=== PATIENT | male | born 1950 | race Caucasian/White ===

== ENCOUNTER 2023-07-25 19:47 | Inpatient (IN) | payer OTHER, SELFPAY ==
[2023-07-25] VITALS (9 sets, daily range): BP systolic 109–164; BP diastolic 54–73; BMI 23.1
--- NOTE | 2023-07-25 13:49 | ED.GENMED ---
History of Present Illness
<Mahad Uriostegui PA-C - Last Filed: 07/25/23 15:33>
General
Chief Complaint: Bowel Problem
Source: patient and spouse
Time Seen by Provider: 07/25/23 13:42
Travel History
Have you had any contact with someone who has COVID-19?: No
Do you have any symptoms of coronavirus? Fever > 100 degrees, chills, cough, shortness of breath, sore throat, loss of taste or smell, muscle aches, or headache?: No
History of Present Illness
History of Present Illness:
73-year-old male with past medical history of hypertension, diabetes, 2 previous bowel obstruction status post bowel resection in 2017 presenting to the emergency department for evaluation after he states he started with abdominal discomfort
yesterday, decreased p.o. intake and continued bloating sensation and pain today. Patient states the pain does feel similar to previous small bowel obstruction in the past but notes that he is still able to pass gas and has been eating albeit much
less than usual. Patient denies any fevers, chills, rigors, vomiting, urinary symptoms, back or flank pain, chest pain or shortness of breath or any other concerns. Did not attempt anything for symptoms prior to arrival. Social history
noncontributory.
Past History
<Mahad Uriostegui PA-C - Last Filed: 07/25/23 15:33>
Past History
ED Past Medical History: Asthma, HTN, Hypercholesterolemia, NIDDM and Other (ventral hernia, BPH)
ED Past Surgical History: Bowel resection
Social History
Tobacco: Non-smoker
Alcohol: Occasional
Drug: None
Personal:
Living: with family
Employment: Employed
Family History
Family History: Other (reviewed and noncontributory)
Review of Systems
<Mahad Uriostegui PA-C - Last Filed: 07/25/23 15:33>
Review of Systems
All Other Systems: ROS reviewed and negative except as documented in HPI and ROS
Phy Exam
<Mahad Uriostegui PA-C - Last Filed: 07/25/23 15:33>
Physical Exam
Physical Exam:
GENERAL: Alert , appears uncomfortable
EYE: clear conjunctiva b/l
HEAD: NCAT
ENT: o/p clr, mmm.
CARDIAC: Tachycardic rate and rhythm
LUNGS: Clear breath sounds bilaterally, no acute respiratory distress, no wheezes/rales/rhonchi
ABDOMEN: Firm, distended, tenderness with guarding in the left lower quadrant, normoactive bowel sounds throughout, no rebound, no cvat
NEUROLOGICAL: Alert and oriented
SKIN: Warm and dry, skin intact.
MUSCULOSKELETAL: No edema, well perfused.
PSYCH: Normal and appropriate interaction.
Scores
<Mahad Uriostegui PA-C - Last Filed: 07/25/23 15:33>
Heart Failure Risk
Heart Failure Risk Score: Not Applicable
Heart Score for Chest Pain Patients
STEMI patient?: Not applicable
Withdrawal Assessment of Alcohol
Withdrawal Assessment Completed?: Not applicable
Course
<Mahad Uriostegui PA-C - Last Filed: 07/25/23 15:33>
Orders/Labs/Results
Orders:
Orders
07/25/23 14:35
Complete Blood Count/With Diff Urgent
Comprehensive Metabolic Panel Urgent
Lipase Urgent
Manual Differential Urgent
07/25/23 15:03
CT Abd/pel (oral only)-[facility] Only Urgent
Comment:
Reason For Exam: lower abd pain, TATIANNA
Iohexol [Omnipaque] See Protocol PO NOW STA
07/25/23 16:54
Urinalysis Reflex To Culture Urgent
Date Specimen was Collected: 07/25/23
Time Specimen was Collected: 15:35
07/25/23 18:23
Lactated Ringers [Lr] 1,000 ml IV BOLUS
07/25/23 18:35
Lactic Acid Q4H
Comment: CANCEL 2nd LACTIC ACID IF 1st LACTIC ACID IS LESS THAN 2
07/25/23 18:51
NG Tube [GI tube insertion- Treatment] ONCE
HYDROmorphone [Dilaudid] 0.5 mg IV NOW STA
Ondansetron Injectable [Zofran] 4 mg IV NOW STA
07/25/23 19:22
Admit/Transfer Patient As Directed
Co-Sign Provider:
Level of Care: Inpatient admission
Assign to:: Medical/Surgical
Physician / Group: marck
Diagnosis: SBO
Reason for Hospitalization: SBO
Expected length of stay greater than two midnights?: Yes
ELOS- Estimated Length of Stay in days: 2
I certify the patient meets the requirements for IP care: Yes
Code Status As Directed
Resuscitation Status: Full Code
07/25/23 19:23
CR Chest Portable - 1 View Urgent
Comment:
Reason For Exam: NG placement
Reason Study Needs to be Portable: Unable to Transport
07/25/23 22:30
Lactic Acid Q4H
Comment: CANCEL 2nd LACTIC ACID IF 1st LACTIC ACID IS LESS THAN 2
Abnormal Lab Results
07/25/23 07/25/23 07/25/23
14:35 16:54 18:44
RBC 3.87 L 10^6/uL
(4.70-6.10)
Hgb 10.9 L g/dL
(13.0-18.0)
Hct 33.2 L %
(39.0-52.0)
MCHC 32.8 L g/dL
(33.0-37.0)
Abs Neuts (Manual) 7.0 H 10^3/uL
(1.4-6.5)
Band Neutrophils 24 H %
(0-3)
Lymphocytes (Manual) 7 L %
(20-51)
Monocytes (Manual) 10 H %
(2-9)
Sodium 131 L mmol/L
(135-145)
BUN 50 H mg/dl
(9-20)
Creatinine 2.0 H mg/dL
(0.7-1.3)
Glucose 160 H mg/dl
(70-99)
Urine Bilirubin 1+ A
(Negative)
Urine Glucose 2+ A
(Negative)
POC Glucose 129 H mg/dl
(70-99)
07/25/23 14:35
07/25/23 14:35
Vital Signs
Initial and Last Documented VS:
Initial Vital Signs
Temp Pulse Resp BP Pulse Ox
97.6 F 120 16 127/70 96
07/25/23 13:15 07/25/23 13:15 07/25/23 13:15 07/25/23 13:15 07/25/23 13:15
Last Documented Vital Signs
Temp Pulse Resp BP Pulse Ox
97.6 F 114 16 130/56 96
07/25/23 13:15 07/25/23 17:30 07/25/23 17:30 07/25/23 17:00 07/25/23 17:30
<Dov Perez PA-C - Last Filed: 07/25/23 19:27>
Orders/Labs/Results
Orders:
Orders
07/25/23 14:35
Complete Blood Count/With Diff Urgent
Comprehensive Metabolic Panel Urgent
Lipase Urgent
Manual Differential Urgent
07/25/23 15:03
CT Abd/pel (oral only)-[facility] Only Urgent
Comment:
Reason For Exam: lower abd pain, TATIANNA
Iohexol [Omnipaque] See Protocol PO NOW STA
07/25/23 16:54
Urinalysis Reflex To Culture Urgent
Date Specimen was Collected: 07/25/23
Time Specimen was Collected: 15:35
07/25/23 18:23
Lactated Ringers [Lr] 1,000 ml IV BOLUS
07/25/23 18:35
Lactic Acid Q4H
Comment: CANCEL 2nd LACTIC ACID IF 1st LACTIC ACID IS LESS THAN 2
07/25/23 18:51
NG Tube [GI tube insertion- Treatment] ONCE
HYDROmorphone [Dilaudid] 0.5 mg IV NOW STA
Ondansetron Injectable [Zofran] 4 mg IV NOW STA
07/25/23 19:22
Admit/Transfer Patient As Directed
Co-Sign Provider:
Level of Care: Inpatient admission
Assign to:: Medical/Surgical
Physician / Group: marck
Diagnosis: SBO
Reason for Hospitalization: SBO
Expected length of stay greater than two midnights?: Yes
ELOS- Estimated Length of Stay in days: 2
I certify the patient meets the requirements for IP care: Yes
Code Status As Directed
Resuscitation Status: Full Code
07/25/23 19:23
CR Chest Portable - 1 View Urgent
Comment:
Reason For Exam: NG placement
Reason Study Needs to be Portable: Unable to Transport
07/25/23 22:30
Lactic Acid Q4H
Comment: CANCEL 2nd LACTIC ACID IF 1st LACTIC ACID IS LESS THAN 2
Abnormal Lab Results
07/25/23 07/25/23 07/25/23
14:35 16:54 18:44
RBC 3.87 L 10^6/uL
(4.70-6.10)
Hgb 10.9 L g/dL
(13.0-18.0)
Hct 33.2 L %
(39.0-52.0)
MCHC 32.8 L g/dL
(33.0-37.0)
Abs Neuts (Manual) 7.0 H 10^3/uL
(1.4-6.5)
Band Neutrophils 24 H %
(0-3)
Lymphocytes (Manual) 7 L %
(20-51)
Monocytes (Manual) 10 H %
(2-9)
Sodium 131 L mmol/L
(135-145)
BUN 50 H mg/dl
(9-20)
Creatinine 2.0 H mg/dL
(0.7-1.3)
Glucose 160 H mg/dl
(70-99)
Urine Bilirubin 1+ A
(Negative)
Urine Glucose 2+ A
(Negative)
POC Glucose 129 H mg/dl
(70-99)
07/25/23 14:35
07/25/23 14:35
Vital Signs
Initial and Last Documented VS:
Initial Vital Signs
Temp Pulse Resp BP Pulse Ox
97.6 F 120 16 127/70 96
07/25/23 13:15 07/25/23 13:15 07/25/23 13:15 07/25/23 13:15 07/25/23 13:15
Last Documented Vital Signs
Temp Pulse Resp BP Pulse Ox
97.6 F 114 16 130/56 96
07/25/23 13:15 07/25/23 17:30 07/25/23 17:30 07/25/23 17:00 07/25/23 17:30
<Mahad Uriostegui PA-C - Last Filed: 07/25/23 15:33>
MDM/Problems Addressed
Differential Diagnosis Includes:
Diverticulitis, diverticulosis, bowel obstruction, appendicitis, colitis, pancreatitis
MDM/Problems Addressed:
73-year-old male presenting the emergency department for evaluation of generalized abdominal pain however on exam pain seems to be most in the left lower quadrant. He has normal bowel sounds throughout all quadrants making the diagnosis of bowel
obstruction a little less likely. Will obtain CT scan to further evaluate. Labs ordered. Patient declining anything for pain or nausea at this time. Reassessment following
<Mahad Uriostegui PA-C - Last Filed: 07/25/23 15:33>
*Pulse Oximetry
Patient hypoxic: no
Data Reviewed
Review of Other/Old Records Reveals: Labs and Records
Source: patient and spouse
<Dov Perez PA-C - Last Filed: 07/25/23 19:27>
*Critical Care Note
Total Time (30-74mins, 75-104mins- exclusive of procedures): Not Applicable
<Mahad Uriostegui PA-C - Last Filed: 07/25/23 15:33>
Comment
Comment:
Patient's labs show an acute kidney injury. His CT scan was changed from a IV contrast study to oral contrast only. Patient has no leukocytosis but there is a bandemia. CT pending. Possible admission
<Dov Perez PA-C - Last Filed: 07/25/23 19:27>
Update Note
Update Note:
07/25/2023 1823 PM: Assumed care of this patient from Chris Uriostegui PA-C at shift change 1800. Awaiting results of CT scan. High level of concern for bowel obstruction. On review of labs patient with acute kidney injury and mild uremia, will order
for 1 L of lactated Ringer's, lactic acid level to be sent
07/25/2023 1857 PM: CT confirms SBO. No pneumatosis. Reviewed with gen surg, agrees with NGT and hospitalist admission.
ED Attending Note
<Mahad Uriostegui PA-C - Last Filed: 07/25/23 15:33>
-
Portions of this chart may have been created with voice recognition software.� Occasional wrong word or��sound alike� substitutions may have occurred due to the inherent limitations of voice recognition software.
Discharge Plan
Departure
Patient Disposition: Admit
Date of Disposition: 07/25/23
Time of Disposition: 19:05
Presentation/result/management discussed w/ accepting MD/DO: Hospitalist
Discharge Problem:
Small bowel obstruction
Prescriptions:
No Action
multivitamin with folic acid [Tab-A-Eusebio] 1 TABLET tablet
1 tab PO DAILY
metformin 500 mg tablet
1,000 mg PO BID@0800,1700
lisinopril 20 mg tablet
20 mg PO DAILY
simvastatin 10 mg tablet
10 mg PO QPM
glipizide 5 mg tablet extended release 24hr
5 mg PO DAILY
hydrochlorothiazide 12.5 mg capsule
12.5 mg PO DAILY
dapagliflozin propanediol [Farxiga] 5 mg tablet
5 mg PO DAILY
Referrals:
Alton Lindquist MD [Family Provider] -
Interventions
Interventions:
*Risk Screen - Suicide Last Done: 07/25/23 14:31
*General Assessment Last Done: 07/25/23 14:31
*Neglect/Abuse Screening Last Done: 07/25/23 14:31
ED- Fall Risk Assessment Last Done: 07/25/23 14:31
*ED COVID-19 Vaccine History Last Done: 07/25/23 13:15
[facility]-Rzagrf-Slvzfyuvwb Assessment Last Done: 07/25/23 14:31
Discharge Date and Time
Print Language: JORDANIAN
[2023-07-25 14:55] LABS: Hematocrit 33.2 % (39.0-52.0); Hemoglobin 10.9 g/dL (13.0-18.0); Mean Corp Hgb Conc. 32.8 g/dL (33.0-37.0); Mean Corpuscular Hgb 28.2 pg (27.0-31.0); Mean Corpuscular Volume 85.8 fL (80.0-94.0); Mean Platelet Volume 9.4 fL (7.4-10.4); Nucleated Red Blood Cells % 0 % (-); Platelet Count 363 10^3/uL (130-400); Red Blood Cell Count 3.87 10^6/uL (4.70-6.10); Red Cell Dist. Width 13.6 % (11.5-14.5); White Blood Cell Count 9.4 10^3/uL (4.8-10.8)
[2023-07-25 14:58] LABS: ALT (SGPT) 20 U/L (0-50); AST (SGOT) 20 U/L (17-59); Albumin 3.8 g/dl (3.5-5.0); Alkaline Phosphatase 63 U/L (38-126); Blood Urea Nitrogen 50 mg/dl (9-20); Calcium 8.9 mg/dl (8.4-10.2); Carbon Dioxide 24 mmol/L (22-30); Chloride 98 mmol/L (98-107); Glucose 160 mg/dl (70-99); Lipase 49 U/L (23-300); Sodium 131 mmol/L (135-145); Total Bilirubin 0.8 mg/dl (0.2-1.3); Total Protein 6.4 g/dl (6.3-8.2); eGFR 34.16
[2023-07-25 15:32] LABS: Band Neutrophils 24 % (0-3); Eosinophils 3 % (0-6); Lymphocytes 7 % (20-51); Monocytes 10 % (2-9); Myelocytes 5 % (-); Normal RBC Morphology Yes; Platelets Checked Yes; Segmented Neutrophils 51 % (42-75); Total Cells Counted 100
[2023-07-25] MEDS: OMNIPAQUE 50 ML PO (15:33)
[2023-07-25 17:07] LABS: Urine Albumin Negative (Neg - Trace); Urine Bilirubin 1+ (Negative); Urine Character Clear (Clear); Urine Color Yellow; Urine Glucose 2+ (Negative); Urine Ketone Negative (Negative); Urine Leukocyte Negative (Negative); Urine Nitrite Negative (Negative); Urine Occult Blood Negative (Negative); Urine Urobilinogen Negative (Neg - 1+)
[2023-07-25] MEDS: LR 1000 IV (18:40)
[2023-07-25 18:45] LABS: Glucose - Point of Care 129 mg/dl (70-99)
[2023-07-25] MEDS: DILAUDID 0.5 MG IV ×2 (18:59→23:51)
[2023-07-25] MEDS: ZOFRAN 4 MG IV (18:59)
[2023-07-25 19:04] LABS: Lactic Acid 1.5 mmol/L (0.7-2.0)
--- NOTE | 2023-07-25 19:25 | HPS.HSE ---
Family Physician
-
Family Physician: Alton Lindquist
Chief Complaint
-
abdominal pain
History of Present Illness
73-year-old male past medical history of hypertension, asthma, diabetes, CKD, macular degeneration, prior bowel obstruction status post bowel resection in 2017, presenting with abdominal pain since yesterday with bloating, decreased p.o. intake. He
did have vomiting today. Pain feels similar to when he had small bowel obstruction in the past but he is still able to pass gas although much less than usual. He did have some diarrhea yesterday. He denies any fevers or chills urinary symptoms,
back or flank pain, chest pain or shortness of breath.
Denies smoking or alcohol use.
Medical History
Past Medical History
Past Medical History: Reports Other (hypertension, asthma, diabetes, CKD, macular degeneration, prior bowel obstruction status post bowel resection in 2017,)
Past Surgical History: Reports Other (bowel obstruction )
Social History
Tobacco: Non-smoker
Alcohol: None
Drug: None
Family History
Family History: Not pertinent
Allergies / Home Medications
Allergies reflects when Allergies were last updated in [facility].
Home Medications with original date entered in [facility]
Allergy/Medication List:
Allergies
Allergy/AdvReac Type Severity Reaction Status Date / Time
No Known Allergies Allergy Verified 07/25/23 13:49
Home Medications
multivitamin with folic acid 400 mcg tablet (Tab-A-Eusebio) 1 tab PO DAILY 03/21/20
dapagliflozin propanediol 5 mg tablet (Farxiga) 5 mg PO DAILY 07/25/23
glipizide 5 mg tablet, extended release 24 hr 5 mg PO DAILY 07/25/23
hydrochlorothiazide 12.5 mg capsule 12.5 mg PO DAILY 07/25/23
lisinopril 20 mg tablet 20 mg PO DAILY 07/25/23
metformin 500 mg tablet 1,000 mg PO BID@0800,1700 05/01/24
simvastatin 10 mg tablet 10 mg PO QPM 07/25/23
Review of Systems
-
History Source: Patient
A 12 point ROS was completed and negative except as noted: Yes
Constitutional: Reports No Symptoms
EENT: Reports No Symptoms
Respiratory: Reports No Symptoms
Cardiac: Reports No Symptoms
Abdomen/GI: Reports See HPI
: Reports No Symptoms
Musculoskeletal: Reports No Symptoms
Skin: Reports No Symptoms
Neurological: Reports No Symptoms
Endocrine: Reports No Symptoms
Hematologic/Lymphatic: Reports No Symptoms
Psych: Reports No Symptoms
Physical Exam
Vital Signs
Vital Signs
Temp Pulse Resp BP Pulse Ox
97.6 F 114 16 130/56 96
07/25/23 13:15 07/25/23 17:30 07/25/23 17:30 07/25/23 17:00 07/25/23 17:30
Physical Exam
General: Well Developed, Well Nourished and No Apparent Distress
HEENT: NormoCephalic, Moist mucous membranes and Atraumatic
Respiratory: Clear
Cardiac: S1/S2 and Regular Rhythm; No Murmur or Rub
GI: Soft, Non Distended, Normal Bowel Sounds, Tender (diffusely ) and Distended; No Organomegaly
Rectal: Deferred by Provider
Musculoskeletal: No Clubbing, No Cyanosis and No Edema
Skin: No Rash
Neuro: Nonfocal/grossly intact
Laboratory Results
-
07/25/23 14:35
07/25/23 14:35
Laboratory Results
Lactic Acid 1.5 mmol/L (0.7-2.0) 07/25/23 18:35
Total Bilirubin 0.8 mg/dl (0.2-1.3) 07/25/23 14:35
AST 20 U/L (17-59) 07/25/23 14:35
ALT 20 U/L (0-50) 07/25/23 14:35
Alkaline Phosphatase 63 U/L (38-126) 07/25/23 14:35
Lipase 49 U/L (23-300) 07/25/23 14:35
Data Reviewed
-
Lab Data: Labs Reviewed by me
Old Records: Reviewed
Impression/Plan
-
IMPRESSION:
PLAN:
# Small bowel obstruction
# History of small bowel obstruction status post bowel resection 2016
-CT abdomen pelvis shows small bowel obstruction with transition involving enterocolic anastomosis in the right lower quadrant, mild small bowel thickening
-N.p.o. including medications
-NG tube placed, check chest x-ray for placement
-IV fluids
-Zofran, Dilaudid
-General surgery consulted
# Acute kidney injury prerenal on CKD stage II
-IV fluids
Essential hypertension
-Hold hydrochlorothiazide, lisinopril
-As needed hydralazine if needed
Asthma
Type 2 diabetes
-Hold glipizide, metformin, dapagliflozin
-Insulin sliding scale
Macular degeneration
Full code
DVT prophylaxis�heparin
N.p.o.
--- NOTE | 2023-07-25 20:50 | PTCARENOTE ---
Pt arrived to room 416-02. Pt did stand/ pivot from stretcher to bed. Pt AAOx3, VSS. Pt with NG tube placed down in ED. Pt c/o 5/10 pain to left side of face post NG tube placement per pt. Pt in no signs of acute distress, respirations regular. Pt
oriented to room, call dela cruz placed within reach.
[2023-07-25] MEDS: NSS 1000 IV (21:39)
[2023-07-25] MEDS: HEPARIN 5000 UNITS SC (21:39)
[2023-07-26 01:52] LABS: Glucose - Point of Care 159 mg/dl (70-99)
[2023-07-26 06:24] LABS: Glucose - Point of Care 135 mg/dl (70-99)
[2023-07-26 07:03] LABS: % Basophils 0.6 % (0-2); % Eosinophils 5.5 % (0-6); % Immature Granulocytes 0.4 % (0-0.5); % Lymphocytes 7.6 % (20.5-51.1); % Monocytes 15.1 % (1.7-9.3); % Neutrophils 70.8 % (42.2-75.2); Absolute Basophils 0.1 10^3/uL (0-0.2); Absolute Eosinophils 0.5 10^3/uL (0-0.7); Absolute Lymphocytes 0.6 10^3/uL (1.2-3.4); Absolute Monocytes 1.2 10^3/uL (0.1-0.6); Absolute Neutrophils 5.8 10^3/uL (1.4-6.5); Hematocrit 32.1 % (39.0-52.0); Hemoglobin 10.7 g/dL (13.0-18.0); Mean Corp Hgb Conc. 33.3 g/dL (33.0-37.0); Mean Platelet Volume 9.2 fL (7.4-10.4); Nucleated Red Blood Cells % 0 % (-); Platelet Count 393 10^3/uL (130-400); Red Blood Cell Count 3.82 10^6/uL (4.70-6.10); Red Cell Dist. Width 13.6 % (11.5-14.5); White Blood Cell Count 8.1 10^3/uL (4.8-10.8)
[2023-07-26] MEDS: NSS 1000 IV ×2 (07:06→17:35)
[2023-07-26 07:17] LABS: ALT (SGPT) 16 U/L (0-50); AST (SGOT) 19 U/L (17-59); Albumin 3.5 g/dl (3.5-5.0); Alkaline Phosphatase 65 U/L (38-126); Blood Urea Nitrogen 44 mg/dl (9-20); Calcium 8.7 mg/dl (8.4-10.2); Carbon Dioxide 24 mmol/L (22-30); Chloride 101 mmol/L (98-107); Estimated Creatinine Clearance 39 ml/min; Glucose 125 mg/dl (70-99); Potassium 4.8 mmol/L (3.5-5.1); Sodium 134 mmol/L (135-145); Total Bilirubin 0.6 mg/dl (0.2-1.3); eGFR 41.52
[2023-07-26 07:30] VITALS: BP 139/66
[2023-07-26] MEDS: NOVOLOG FLEXPEN-LOW RESISTANCE SC ×4 (09:12→19:27)
--- NOTE | 2023-07-26 09:43 | CON.GS ---
Consultation
-
Reason for Consultation: Small bowel obstruction
Medical History
-
Chief Complaint: Abdominal pain, bloating
History of Present Illness:
The patient is a 73-year-old male who has a past surgical history notable for laparoscopic assisted ileocecectomy in [address] Vernon for what was noted as a severely thickened and strictured terminal ileum. Reviewing pathology report
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 No dysplasia or malignancy.
Patient states that he has done well since his operative procedure without any GI issues/symptoms. He was in his usual baseline state of health until 2 days ago when he took note of progressive abdominal distention and discomfort followed by pain.
Pain is central and generalized not localizing to a specific area. He had nausea and occasional small amounts of vomiting. He has not passed much flatus and not had a bowel movement since his symptoms started.
Reports relief of abdominal pain since emergency department evaluation. His nausea has subsided as well. NG tube is uncomfortable and he has a bit of sinus pressure and headache on the left side where he was placed. No flatus or bowel movement.
Patient also states that he feels as though his abdominal distention has improved.
Past Medical History
Past Medical History: Other (Hypertension, asthma, diabetes, CKD, macular degeneration)
Past Surgical History: Bowel Resection (Laparoscopic assisted ileocecectomy 2017)
Social History
Tobacco: Non-Smoker
Alcohol: None
Family History
Family History: Reviewed & Not Pertinent
Allergies / Home Medications
Allergy/AdvReac Type Severity Reaction Status Date / Time
No Known Allergies Allergy Verified 07/25/23 13:49
�Medication �Instructions �Recorded �Confirmed �Type
multivitamin with folic acid 400 1 tab PO DAILY Supplement 03/21/20 07/25/23 History
mcg tablet (Tab-A-Euseboi)
dapagliflozin propanediol 5 mg 5 mg PO DAILY Diabetes 07/25/23 07/25/23 History
tablet (Farxiga)
glipizide 5 mg tablet, extended 5 mg PO DAILY Diabetes 07/25/23 07/25/23 History
release 24 hr
hydrochlorothiazide 12.5 mg capsule 12.5 mg PO DAILY Fluid 07/25/23 07/25/23 History
Retention/Swelling
lisinopril 20 mg tablet 20 mg PO DAILY Blood Pressure 07/25/23 07/25/23 History
metformin 500 mg tablet 1,000 mg PO BID@0800,1700 Diabetes 07/25/23 07/25/23 History
simvastatin 10 mg tablet 10 mg PO QPM High Cholesterol 07/25/23 07/25/23 History
Review of Systems
-
History Source: Patient
All other systems: Negative unless noted
A 10 point review of systems was completed, and was negative except as per HPI.
Physical Exam
Vital Signs
Temp Pulse Resp BP Pulse Ox
97.4 F 90 16 139/66 95
07/26/23 07:30 07/26/23 07:30 07/26/23 07:30 07/26/23 07:30 07/26/23 07:30
07/25/23 07/26/23 07/27/23
06:59 06:59 06:59
Actual Weight 73.113 kg
Body Mass Index (BMI) 23.1
Lab Results
07/26/23 06:35
07/26/23 06:35
WBC 8.1 10^3/uL (4.8-10.8) 07/26/23 06:35
Hgb 10.7 g/dL (13.0-18.0) L 07/26/23 06:35
Hct 32.1 % (39.0-52.0) L 07/26/23 06:35
Plt Count 393 10^3/uL (130-400) 07/26/23 06:35
Abs Immat Gran (auto) 0.0 10^3/uL (0-0.05) 07/26/23 06:35
Neutrophils % 70.8 % (42.2-75.2) 07/26/23 06:35
Physical Exam
General: Well Developed, Well Nourished, No Apparent Distress and Other (Uncomfortable appearing mainly due to NG tube)
HEENT: Normocephalic, Anicteric and Moist Mucous Membranes
Respiratory: Non Labored Respirations
Cardiac: Regular Rhythm
GI: Soft, Tender (Mild tenderness on palpation. No rebound, rigidity or guarding. No percussion tenderness.) and Distended (With tympany on percussion)
Neuro: AO x 3
Psych: Calm
Data Reviewed
-
Radiology: Image Personally Visualized and interpreted
CT Scan: Image Personally Visualized and interpreted
Labs: Labs Reviewed by me
Assessment / Plan
-
Assessment: 73-year-old male presenting with probable small bowel obstruction.
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 He states that he has not had
any need for GI follow-up since bowel resection.
CT imaging personally reviewed. Rather diffuse small bowel dilation and some small bowel wall thickening/edema in the more proximal jejunum. Oral contrast opacifies the stomach and proximal small bowel. No significant ascites. No free air. No
pneumatosis, no portal venous gas. No evidence of closed-loop obstruction. Small bowel tapers distally either close to or about the region of the ileal colonic anastomosis.
Chest x-ray appeared to show NG tube within the distal esophagus and not definitively traversing the diaphragm. Discussed with patient and nursing staff, has not appeared as though anybody has since manipulated the NG tube to advance it further
Afebrile, persistent sinus tachycardia
On examination however the patient is softly distended and has very minimal tenderness
No leukocytosis on admission but he did have a bandemia initially.
Elevated BUN/creatinine indicative of dehydration and acute kidney injury; slightly improved.
There is no lactic acidosis and carbon dioxide remains normal this a.m.
Plan: I advanced the NG tube from 50 to 65 cm at the naris and resecured at as there was scant to no output in the NG tube canister at bedside.
Follow-up abdominal x-ray to evaluate bowel gas pattern, previous ingested oral contrast as well as NG tube positioning
No indications for urgent/emergent surgical intervention with clinical stability, benign abdominal examination and CT imaging without evidence of closed-loop obstruction or bowel compromise/immediate threat.
Maintain NG tube decompression and bowel rest
Continue aggressive IV fluid hydration
Will continue to follow
[2023-07-26] MEDS: DILAUDID 0.5 MG IV ×2 (09:56→18:23)
--- NOTE | 2023-07-26 10:16 | W.PN.HOSP.TC ---
Today's Communication/Plan
-
To continue n.p.o. with NG tube to low suction awaiting tube placement after adjustment.
Continue IV fluids
Continue to monitor BMP and acute kidney injury
Monitor BP and blood sugars while n.p.o. to follow sliding scale coverage and as needed hydralazine
Assessment / Plan
Assessment / Plan
73-year-old male past medical history of hypertension, asthma, diabetes, CKD, macular degeneration, prior bowel obstruction status post bowel resection in 2017, presenting with abdominal pain since yesterday with bloating, decreased p.o. intake. He
did have vomiting today. Pain feels similar to when he had small bowel obstruction in the past but he is still able to pass gas although much less than usual. He did have some diarrhea yesterday. He denies any fevers or chills urinary symptoms,
back or flank pain, chest pain or shortness of breath.
Denies smoking or alcohol use.
After NG tube insertion minimal output overnight and NG tube noted to be at distal esophagus on imaging and was further advanced by Dr. Padgett and general surgery this morning
# Small bowel obstruction
# History of small bowel obstruction status post bowel resection 2016
-CT abdomen pelvis shows small bowel obstruction with transition involving enterocolic anastomosis in the right lower quadrant, mild small bowel thickening
-N.p.o. including medications
-NG tube placed, chest x-ray showed NG tube at distal esophagus no transition below the diaphragm and was advanced by general surgery repeat imaging pending
-IV fluids to continue
-Zofran, Dilaudid
-General surgery consulted
# Acute kidney injury prerenal on CKD stage II
-IV fluids to continue
Essential hypertension
-Hold hydrochlorothiazide, lisinopril
-As needed hydralazine if needed
Asthma
Type 2 diabetes
-Hold glipizide, metformin, dapagliflozin
-Insulin sliding scale
Macular degeneration
Full code
DVT prophylaxis�heparin
N.p.o.
Anticipated Discharge: 24 - 48 hours
Subjective/Interval History
-
Date of Service: July 26, 2023
Describing less abdominal distention and tenderness surgery had to advance the NG tube. He is describing some discomfort in the left nares into his sinuses given him a headache.
Objective Data
-
Labs:
Laboratory Results
07/26/23
06:35
WBC 8.1
Hgb 10.7 L
Hct 32.1 L
Plt Count 393
Sodium 134 L
Potassium 4.8
Chloride 101
Carbon Dioxide 24
BUN 44 H
Creatinine 1.7 H
Glucose 125 H
Calcium 8.7
Total Bilirubin 0.6
AST 19
ALT 16
Alkaline Phosphatase 65
Vital Signs:
Vital Signs
Temp Pulse Resp BP Pulse Ox
97.4 F 90 16 139/66 95
07/26/23 07:30 07/26/23 07:30 07/26/23 07:30 07/26/23 07:30 07/26/23 07:30
I&O
07/25/23 07/26/23 07/27/23
06:59 06:59 06:59
Intake Total 0 / 0 800 / 800
Output Total 1100 / 1100
Balance -1100 / -1100 800 / 800
Review of Systems
-
History Source: Patient
EENT: Reports Sore Throat and Runny Nose (Left nares from NGT)
Abdomen/GI: Reports Abdominal Pain and Constipated
Physical Exam
-
General: Well Developed
HEENT: Normocephalic
Respiratory: Clear to Auscultation
Cardiac: Regular Rhythm
GI: Soft, Tender and Distended
Neuro: Awake and Alert
Data Reviewed
-
Total Time Spent with Patient (in minutes): 45
CT Scan: Report Reviewed by me (Diffuse distention of small bowel. Ingested contrast material does not reach the cecum. Small bowel distended up to 4.4 cm. Mild wall thickening is noted. No evidence of pneumatosis. Transition appears to be in the
right lower quadrant. Surgical clips are demonstrated suggesting an enterocolic anas)
Labs: Labs Reviewed by me (No over the BUN trending down to 44 creatinine trending down to 1.7 sodium 134 glycohemoglobin 7.0)
--- NOTE | 2023-07-26 11:19 | CM ---
I met with Pedro Luis and his girlfriend who was at his bedside. Pedro Luis is feeling better today, but still with NGT. We spoke about his activities and Brayan advised that he works for a [employer] center to stay active. He anticipates returning home at
discharge.
CM will continue to follow.
[2023-07-26 11:39] LABS: Glucose - Point of Care 149 mg/dl (70-99)
[2023-07-26] MEDS: HEPARIN 5000 UNITS SC ×2 (11:54→20:28)
--- NOTE | 2023-07-26 14:00 | PTCARENOTE ---
1400 Pt c/o throat discomfort, currently has NGtube in place. DR. Manrique notified and ordered chloreseptic spray PRN. Explain to pt and medication given with some relief, continue to monitor pt closely.
[2023-07-26] MEDS: CHLORASEPTIC/SORE THROAT SPRAY 2 SPRAY PO (14:42)
[2023-07-26 15:00] VITALS: BP 137/67
--- NOTE | 2023-07-26 16:01 | PTCARENOTE ---
[address] Padgett regarding NGtube in good position after abdomen x-ray completed. Noted orders to flush Ngtube as per MD, continue to monitor pt closely.
[2023-07-26 18:12] LABS: Glucose - Point of Care 90 mg/dl (70-99)
[2023-07-26 23:44] VITALS: BP 156/84
[2023-07-27 00:07] LABS: Glucose - Point of Care 98 mg/dl (70-99)
[2023-07-27] MEDS: NSS 1000 IV ×2 (00:45→07:53)
[2023-07-27] MEDS: DILAUDID 0.5 MG IV (00:45)
[2023-07-27 06:05] LABS: Glucose - Point of Care 101 mg/dl (70-99)
[2023-07-27 07:23] LABS: Hematocrit 33.7 % (39.0-52.0); Hemoglobin 10.9 g/dL (13.0-18.0); Mean Corp Hgb Conc. 32.3 g/dL (33.0-37.0); Mean Corpuscular Hgb 27.8 pg (27.0-31.0); Platelet Count 424 10^3/uL (130-400); Red Blood Cell Count 3.92 10^6/uL (4.70-6.10); Red Cell Dist. Width 13.4 % (11.5-14.5)
[2023-07-27 07:49] LABS: Blood Urea Nitrogen 27 mg/dl (9-20); Calcium 8.6 mg/dl (8.4-10.2); Carbon Dioxide 21 mmol/L (22-30); Chloride 104 mmol/L (98-107); Estimated Creatinine Clearance 51 ml/min; Glucose 103 mg/dl (70-99); Potassium 4.5 mmol/L (3.5-5.1); Sodium 136 mmol/L (135-145); eGFR 57.29
[2023-07-27] MEDS: NOVOLOG FLEXPEN-LOW RESISTANCE SC ×3 (07:50→16:48)
[2023-07-27 07:52] VITALS: BP 158/72
[2023-07-27] MEDS: HEPARIN 5000 UNITS SC ×2 (07:53→20:25)
--- NOTE | 2023-07-27 08:47 | PN.CDI ---
CDI
- -
CDI:
Physician Documentation Request
Admit Date: 07/25/23 19:47
Dear Doctor Hilaria,
Clinical Indicators:
Patient admitted with small bowel obstruction/TATIANNA; presenting with vomiting and abdominal pain.
IVF: LF 1L bolus + NSS maintenance fluids
Sodium levels:
07/25/23 07/26/23
14:35 06:35
Sodium 131 L 134 L
Based on the above, could you clarify in the progress notes, the appropriate diagnosis, if significant, that supports the above abnormalities and additional evaluation, monitoring and/or treatment rendered:
Hyponatremia
Abnormal lab values, clinically insignificant
Other, please specify
Use of terms such as suspected, likely, concern for, or probable (associated with a specific diagnosis that is being evaluated, monitored, or treated as if it exists) are acceptable and can be coded in the inpatient setting, when documented at the
time of discharge.
Thank you,
LEIDA Spence RN
CDI Specialist
available via tiger text
Please use your independent medical judgment in providing your response.
--- NOTE | 2023-07-27 10:38 | W.PN.GS2 ---
Addendum entered and electronically signed by Pato Schilling MD 07/27/23 14:54:
I saw and examined the patient independently.
The Decorator Inspector's note was reviewed and I agree with the note, assessment and plan except where noted below.
Comment: This is a 73-year-old male with history of laparoscopic cholecystectomy 2017 presenting with probable small bowel obstruction however now with return of bowel function. NG tube removed at bedside.
Start clears, patient is still distended so we will go slow.
No acute surgical intervention warranted at this time.
Surgery will continue to follow
Original Note:
Today's Communication / Plan
-
d/c NGT and start clears
Assessment / Plan
-
73-year-old male with h/o of laparoscopic ileocecectomy in 2017 presenting with probable small bowel obstruction. Now with passage of flatus/stools. Symptomatic improvement.
AFVSS
--NGT removed at bedside
--Advance diet to clears
--No surgical intervention planned at this time, will follow with diet advancement
--Medical management as per primary team
Subjective Data
-
Date of Service: July 27, 2023
Patient seen and examined at bedside with Dr. Schilling. Denies n/v. Passing flatus with BM this am. Denies abdominal pain. Notes he is feeling anxious this am.
Objective Data
-
Intake and Output
07/26/23 07/27/23 07/28/23
06:59 06:59 06:59
Intake Total 0 / 0 3370 / 3370
Output Total 1100 / 1100 700 / 700
Balance -1100 / -1100 2670 / 2670
Intake:
Oral fluids 220 / 220
IV fluids (Total) 3120 / 3120
Amount instilled into GI Tube ( 0 / 0 30 / 30
Total)
[place] Sump 30 / 30
Output:
Gastrointestinal tube output ( 600 / 600 250 / 250
Total)
[place] Sump 250 / 250
Urine, Voided 500 / 500 450 / 450
Vital Signs
Temp Pulse Resp BP Pulse Ox
97.8 F 72 18 158/72 95
07/27/23 07:30 07/27/23 07:52 07/27/23 07:52 07/27/23 07:52 07/27/23 07:52
Lab Results
07/27/23 06:36
07/27/23 06:36
Calcium 8.6 mg/dl (8.4-10.2) 07/27/23 06:36
Total Bilirubin 0.6 mg/dl (0.2-1.3) 07/26/23 06:35
AST 19 U/L (17-59) 07/26/23 06:35
ALT 16 U/L (0-50) 07/26/23 06:35
Alkaline Phosphatase 65 U/L (38-126) 07/26/23 06:35
Total Protein 6.0 g/dl (6.3-8.2) L 07/26/23 06:35
Albumin 3.5 g/dl (3.5-5.0) 07/26/23 06:35
Physical Exam
-
NAD
ABD soft, mild distention, NT
--- NOTE | 2023-07-27 10:40 | W.PN.HOSP.TC ---
Today's Communication/Plan
-
NG tube out started on clear liquids
Continue to monitor renal status and electrolytes they are improving
Okay to discontinue IV fluids
Take for oral
Resume some of his oral medications but withhold hydrochlorothiazide and metformin hold glipizide
Assessment / Plan
Assessment / Plan
73-year-old male past medical history of hypertension, asthma, diabetes, CKD, macular degeneration, prior bowel obstruction status post bowel resection in 2017, presenting with abdominal pain since yesterday with bloating, decreased p.o. intake. He
did have vomiting today. Pain feels similar to when he had small bowel obstruction in the past but he is still able to pass gas although much less than usual. He did have some diarrhea yesterday. He denies any fevers or chills urinary symptoms,
back or flank pain, chest pain or shortness of breath.
Denies smoking or alcohol use.
After NG tube insertion minimal output overnight and NG tube noted to be at distal esophagus on imaging and was further advanced by Dr. Padgett and general surgery this morning
# Small bowel obstruction
# History of small bowel obstruction status post bowel resection 2016
-CT abdomen pelvis shows small bowel obstruction with transition involving enterocolic anastomosis in the right lower quadrant, mild small bowel thickening
-N.p.o. >> clear liquid
-NG tube placed, chest x-ray showed NG tube at distal esophagus no transition below the diaphragm and was advanced by general surgery repeat imaging pending
-IV fluids can be discontinued
-Zofran, Dilaudid
-General surgery consulted
# Acute kidney injury prerenal on CKD stage II in resolution
-IV fluids to discontinued
-Nephrotoxins withheld and hydrochlorothiazide will continue to be held however will restart JULIO CESAR inhibitor
Essential hypertension
-Hold hydrochlorothiazide, lisinopril
-As needed hydralazine if needed
Asthma
Type 2 diabetes
-Hold glipizide, metformin, dapagliflozin
-Insulin sliding scale
Macular degeneration
Full code
DVT prophylaxis�heparin
N.p.o.
Anticipated Discharge: Within 24 hours
Subjective/Interval History
-
Date of Service: July 27, 2023
This Mr. Minor is doing better he had his NG tube pulled this morning he had a bowel movement earlier this morning he is not complaining of any nausea or vomiting overnight has not been started on a diet as yet he had a transient episode of chest
discomfort this morning and a he attributes to anxiety is unclear whether the NG tube is still indwelling at that time I suspect it was EKG was fine
Objective Data
-
Labs:
Laboratory Results
07/27/23
06:36
WBC 8.0
Hgb 10.9 L
Hct 33.7 L
Plt Count 424 H
Sodium 136
Potassium 4.5
Chloride 104
Carbon Dioxide 21 L
BUN 27 H
Creatinine 1.3
Glucose 103 H
Calcium 8.6
Vital Signs:
Vital Signs
Temp Pulse Resp BP Pulse Ox
97.8 F 72 18 158/72 95
07/27/23 07:30 07/27/23 07:52 07/27/23 07:52 07/27/23 07:52 07/27/23 07:52
I&O
07/26/23 07/27/23 07/28/23
06:59 06:59 06:59
Intake Total 0 / 0 3370 / 3370
Output Total 1100 / 1100 700 / 700
Balance -1100 / -1100 2670 / 2670
Review of Systems
-
History Source: Patient
Constitutional: Denies Fever
EENT: Reports Sore Throat
Respiratory: Reports No Symptoms
Cardiac: Reports Chest Pain (Atypical)
Abdomen/GI: Reports Constipated
Physical Exam
-
General: Well Developed
HEENT: Normocephalic
Respiratory: Clear to Auscultation
Cardiac: Regular Rhythm
GI: Soft, Nontender, Nondistended and Normal Bowel Sounds (Still hypoactive)
Skin: Warm
Neuro: Awake
Psych: Calm
Data Reviewed
-
Total Time Spent with Patient (in minutes): 56
Labs: Labs Reviewed by me (Of white count is stable and normal hemoglobin 10.9 chemistry stable BUN slightly elevated 27 but improved from 44/and creatinine down to 1.3)
--- NOTE | 2023-07-27 11:35 | CM ---
Patient seen bedside with girlfriend, reports no needs to CM at this time. Per chart, NG tube removed. CM will continue to follow for discharge planning needs.
Plan; home no needs likely.
[2023-07-27 11:50] LABS: Glucose - Point of Care 115 mg/dl (70-99)
[2023-07-27] MEDS: ZESTRIL 20 MG PO (11:52)
[2023-07-27 15:03] VITALS: BP 136/69
[2023-07-27 16:49] LABS: Glucose - Point of Care 99 mg/dl (70-99)
[2023-07-27] MEDS: LIPITOR 10 MG PO (16:55)
[2023-07-27 23:05] VITALS: BP 143/62
[2023-07-28 01:07] LABS: Glucose - Point of Care 101 mg/dl (70-99)
[2023-07-28 07:00] VITALS: BP 143/70
[2023-07-28 07:23] LABS: Glucose - Point of Care 131 mg/dl (70-99)
[2023-07-28] MEDS: NOVOLOG FLEXPEN-LOW RESISTANCE SC ×2 (07:27→16:54)
[2023-07-28] MEDS: FARXIGA 5 MG PO (07:37)
[2023-07-28] MEDS: DILAUDID 0.5 MG IV (07:37)
[2023-07-28] MEDS: HEPARIN 5000 UNITS SC ×2 (07:37→20:17)
[2023-07-28 07:38] LABS: Blood Urea Nitrogen 16 mg/dl (9-20); Calcium 8.5 mg/dl (8.4-10.2); Carbon Dioxide 26 mmol/L (22-30); Chloride 103 mmol/L (98-107); Estimated Creatinine Clearance 55 ml/min; Glucose 117 mg/dl (70-99); Potassium 4.4 mmol/L (3.5-5.1); Sodium 133 mmol/L (135-145); eGFR > 60.00
[2023-07-28] MEDS: ZESTRIL 20 MG PO (07:41)
--- NOTE | 2023-07-28 10:13 | W.PN.HOSP.TC ---
Addendum entered and electronically signed by Abraham Manrique MD 07/28/23 13:50:
Hyponatremia
Original Note:
Today's Communication/Plan
-
Today full liquids
Check BMP again in a.m.
Presumed can transition to low residue diet tonight or tomorrow morning for discharge plan can resume hydrochlorothiazide at that time.
Assessment / Plan
Assessment / Plan
73-year-old male past medical history of hypertension, asthma, diabetes, CKD, macular degeneration, prior bowel obstruction status post bowel resection in 2017, presenting with abdominal pain since yesterday with bloating, decreased p.o. intake. He
did have vomiting today. Pain feels similar to when he had small bowel obstruction in the past but he is still able to pass gas although much less than usual. He did have some diarrhea yesterday. He denies any fevers or chills urinary symptoms,
back or flank pain, chest pain or shortness of breath.
Denies smoking or alcohol use.
After NG tube insertion minimal output overnight and NG tube noted to be at distal esophagus on imaging and was further advanced by Dr. Padgett and general surgery this morning
# Small bowel obstruction/resolving
# History of small bowel obstruction status post bowel resection 2016
-CT abdomen pelvis shows small bowel obstruction with transition involving enterocolic anastomosis in the right lower quadrant, mild small bowel thickening
-N.p.o. >> clear liquid>> full liquids today
-IV fluids can be discontinued
-Zofran, Dilaudid
-General surgery consulted
# Acute kidney injury prerenal on CKD stage II in resolution
-IV fluids to discontinued
-Nephrotoxins withheld and hydrochlorothiazide will continue to be held however will restart JULIO CESAR inhibitor
Essential hypertension
-Hold hydrochlorothiazide, lisinopril
-As needed hydralazine if needed
Asthma
Type 2 diabetes
-Hold glipizide, metformin, dapagliflozin
-Insulin sliding scale
Macular degeneration
Full code
DVT prophylaxis�heparin
N.p.o.
Anticipated Discharge: Within 24 hours
Subjective/Interval History
-
Date of Service: July 28, 2023
Clear liquids last 24 hours minimal if any abdominal pain and moving his bowels.
Objective Data
-
Labs:
Laboratory Results
07/28/23
06:54
Sodium 133 L
Potassium 4.4
Chloride 103
Carbon Dioxide 26
BUN 16
Creatinine 1.2
Glucose 117 H
Calcium 8.5
Vital Signs:
Vital Signs
Temp Pulse Resp BP Pulse Ox
97.6 F 80 16 143/70 97
07/28/23 07:00 07/28/23 07:41 07/28/23 07:00 07/28/23 07:41 07/28/23 07:00
I&O
07/27/23 07/28/23 07/29/23
06:59 06:59 06:59
Intake Total 3370 / 3370 680 / 920 240 / 240
Output Total 700 / 700
Balance 2670 / 2670 680 / 920 240 / 240
Review of Systems
-
All other systems: Not reviewed unless documented
Physical Exam
-
General: Well Developed
HEENT: Normocephalic
Respiratory: Clear to Auscultation
Cardiac: Regular Rhythm
GI: Soft, Nontender and Distended (Mildly distended)
Neuro: Awake, Alert and Oriented
Psych: Calm
Data Reviewed
-
Total Time Spent with Patient (in minutes): 56
Labs: Labs Reviewed by me (Sodium stable 133/renal status stable)
--- NOTE | 2023-07-28 11:50 | CM ---
CM reviewed chart, possible discharge tomorrow. Patient seen, reports no needs to CM. IMM signed placed in chart. CM will continue to follow for discharge planning needs.
Plan; home no needs likely.
[2023-07-28 11:52] LABS: Glucose - Point of Care 161 mg/dl (70-99)
--- NOTE | 2023-07-28 12:14 | W.PN.GS2 ---
Addendum entered and electronically signed by Pedro Luis Goss MD 07/28/23 14:39:
I saw and examined the patient.
The SUPERVISOR SHED WORKERS's note was reviewed and I agree with the note.
Comment:
Seen in am with SUPERVISOR SHED WORKERS.
No complaints. Flatus and stools. Tolerated clears.
VItals and labs ok.
Abdomen mildly distended and nontender.
Advanced to fulls.
Original Note:
Today's Communication / Plan
-
Advance to FLD
Assessment / Plan
-
73-year-old male with h/o of laparoscopic ileocecectomy in 2017 presenting with probable small bowel obstruction.
Tolerating clears wtih passage of flatus/stools. Symptomatic improvement.
AFVSS
NGT removed yesterday, tolerating clears
--Advance diet to full liquids
--No surgical intervention planned at this time, will follow with diet advancement
--Medical management as per primary team
Subjective Data
-
Date of Service: July 28, 2023
Patient seen and examined at bedside with Dr. Goss. Working on puzzles at bedside. Passing flatus and stools. Denies n/v. Denies abdominal pain. Tolerating clears.
Objective Data
-
Intake and Output
07/27/23 07/28/23 07/29/23
06:59 06:59 06:59
Intake Total 3370 / 3370 680 / 920 240 / 240
Output Total 700 / 700
Balance 2670 / 2670 680 / 920 240 / 240
Intake:
Oral fluids 220 / 220 680 / 920 240 / 240
IV fluids (Total) 3120 / 3120
Amount instilled into GI Tube ( 30 / 30
Total)
[place] Sump 30 / 30
Output:
Gastrointestinal tube output ( 250 / 250
Total)
[place] Sump 250 / 250
Urine, Voided 450 / 450
Other:
Number of approximated MODERATE 3 2
amounts of urine
Vital Signs
Temp Pulse Resp BP Pulse Ox
97.6 F 80 16 143/70 97
07/28/23 07:00 07/28/23 07:41 07/28/23 07:00 07/28/23 07:41 07/28/23 07:00
Lab Results
07/27/23 06:36
07/28/23 06:54
Calcium 8.5 mg/dl (8.4-10.2) 07/28/23 06:54
Total Bilirubin 0.6 mg/dl (0.2-1.3) 07/26/23 06:35
AST 19 U/L (17-59) 07/26/23 06:35
ALT 16 U/L (0-50) 07/26/23 06:35
Alkaline Phosphatase 65 U/L (38-126) 07/26/23 06:35
Total Protein 6.0 g/dl (6.3-8.2) L 07/26/23 06:35
Albumin 3.5 g/dl (3.5-5.0) 07/26/23 06:35
Physical Exam
-
NAD
ABD soft, rounded, NT
[2023-07-28] MEDS: NOVOLOG FLEXPEN-LOW RESISTANCE 1 UNITS SC (13:07)
[2023-07-28 16:08] VITALS: BP 137/67
[2023-07-28 16:53] LABS: Glucose - Point of Care 96 mg/dl (70-99)
[2023-07-28] MEDS: LIPITOR 10 MG PO (17:52)
[2023-07-28 22:08] LABS: Glucose - Point of Care 109 mg/dl (70-99)
[2023-07-28 23:00] VITALS: BP 148/72
[2023-07-29 07:00] VITALS: BP 129/64
[2023-07-29 07:12] LABS: Glucose - Point of Care 126 mg/dl (70-99)
[2023-07-29] MEDS: NOVOLOG FLEXPEN-LOW RESISTANCE SC ×2 (07:26→11:52)
[2023-07-29] MEDS: ZESTRIL 20 MG PO (07:55)
[2023-07-29] MEDS: FARXIGA 5 MG PO (07:55)
[2023-07-29] MEDS: HEPARIN 5000 UNITS SC (07:57)
[2023-07-29 08:12] LABS: Blood Urea Nitrogen 14 mg/dl (9-20); Calcium 9.2 mg/dl (8.4-10.2); Carbon Dioxide 25 mmol/L (22-30); Chloride 102 mmol/L (98-107); Estimated Creatinine Clearance 55 ml/min; Glucose 114 mg/dl (70-99); Potassium 4.4 mmol/L (3.5-5.1); Sodium 134 mmol/L (135-145); eGFR > 60.00
--- NOTE | 2023-07-29 10:28 | W.DS.TRANS ---
DC Summary - Diagnostics Tech
-
Discharge Instructions:
Discharge Diagnosis/Procedures Small bowel obstruction
Acute kidney injury resolved
Hyponatremia
Type 2 diabetes mellitus
Diet Low Residue
Activity No restrictions
Driving Restrictions As prior to admission
Instructions:
Stand-Alone Forms:
Changes to Home Medications: No
Discharge Medications:
DC Medications w/original date entered in [facility]
multivitamin with folic acid 400 mcg tablet (Tab-A-Eusebio) 1 tab PO DAILY Supplement 03/21/20
dapagliflozin propanediol 5 mg tablet (Farxiga) 5 mg PO DAILY Diabetes 07/25/23
glipizide 5 mg tablet, extended release 24 hr 5 mg PO DAILY Diabetes 07/25/23
hydrochlorothiazide 12.5 mg capsule 12.5 mg PO DAILY Fluid Retention/Swelling 07/25/23
lisinopril 20 mg tablet 20 mg PO DAILY Blood Pressure 07/25/23
metformin 500 mg tablet 1,000 mg PO BID@0800,1700 Diabetes 07/25/23
simvastatin 10 mg tablet 10 mg PO QPM High Cholesterol 07/25/23
Home Medication Changes
Pending Results: No
Total time spent discharging patient (in min): 34
--- NOTE | 2023-07-29 11:15 | W.DCSUMMARY ---
Discharge Summary
Discharge Data
Date of Admission: 07/25/23
Date of Discharge: 07/29/23
-
Pending Results: No
Hospital Course
73-year-old male with a history of laparoscopic ileocecectomy in 2017 presenting with probable small bowel obstruction at time symptom complex included abdominal pain since the day prior to presentation with bloating decreased p.o. intake and also
emesis on the date of admission. He had a prior small bowel obstruction in the past and felt similar. Still was able to pass gas although much less than usual and actually did have a diarrheal stool on the date of admission. Prior path reports
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
After admission decision was made the patient actually noted relief of abdominal pain he had had a NG tube insertion at the time of presentation CT imaging that showed diffuse small bowel dilatation and small bowel wall thickening and edema in the
more proximal jejunum. There is no free air. Small bowel was seen to taper distally either close to or about the region of the ileocolonic anastomosis.
Initial chest x-ray showed the need for further advancement of tube as it was only in the distal esophagus. Seen by the surgical service who advanced NG tube/NG tube was advanced the following morning as the patient was able to pass flatus and
having better bowel movements. He is slowly transition from clear liquids to full liquids and low residue at time of discharge. No contemplated surgical intervention was planned and he was continued on medical management that included treatment of
acute kidney injury in relation to dehydration and volume losses with improvement in IV fluids we also held his antihypertensives including lisinopril and hydrochlorothiazide glipizide and metformin were held during hospitalization all of which will
be resumed at time of discharge./He has been cleared by the surgical service and medically stable for discharge on this date explaining low residue diet to be continued in the short-term. It was explained to him to also remain well-hydrated and to
avoid extended periods of constipation
Discharge Plan
-
Patient Disposition: Home (Routine Discharge)
Discharge Diagnosis/Procedures: Small bowel obstruction
Acute kidney injury resolved
Hyponatremia
Type 2 diabetes mellitus
Diet: Low Residue
Activity: No restrictions
Driving Restrictions: As prior to admission
Referrals:
Alton Lindquist MD [Family Provider] - in one to two weeks
Prescriptions:
Continued
multivitamin with folic acid [Tab-A-Eusebio] 1 TABLET tablet
1 tab PO DAILY
metformin 500 mg tablet
1,000 mg PO BID@0800,1700
lisinopril 20 mg tablet
20 mg PO DAILY
simvastatin 10 mg tablet
10 mg PO QPM
glipizide 5 mg tablet extended release 24hr
5 mg PO DAILY
hydrochlorothiazide 12.5 mg capsule
12.5 mg PO DAILY
dapagliflozin propanediol [Farxiga] 5 mg tablet
5 mg PO DAILY
Discharge Orders:
Discharge Patient (As Directed); Ordered 07/29/23
Ordered By: Abraham Manrique
Discharge Date and Time
Print Language: GEORGIAN
[2023-07-29 11:50] LABS: Glucose - Point of Care 147 mg/dl (70-99)
--- NOTE | 2023-07-29 12:15 | CM ---
CM reviewed chart, patient plan for discharge, home no needs. CM will continue to follow for discharge planning needs.
Plan; home no needs.
--- NOTE | 2023-07-29 12:23 | W.PN.GS2 ---
Addendum entered and electronically signed by Pedro Luis Goss MD 07/29/23 14:36:
I saw and examined the patient.
The SENIOR BENEFITS SPECIALIST's note was reviewed and I agree with the note.
Comment:
Seen in am with SENIOR BENEFITS SPECIALIST.
Had flatus and BMs. Tolerated fulls.
Vitals and labs ok.
Abdomen nontender.
Diet advancement and discharge per hospitalist.
Original Note:
Today's Communication / Plan
-
Advancing diet
Dispo planning
Assessment / Plan
-
73-year-old male with h/o of laparoscopic ileocecectomy in 2017 presenting with probable small bowel obstruction.
Tolerating clears wtih passage of flatus/stools. Symptomatic improvement.
AFVSS
Tolerating fulls
--Advance diet to LRD
--Ok for d/c once tolerating diet
--Medical management as per primary team
Subjective Data
-
Date of Service: July 29, 2023
Patient seen and examined at bedside with Dr. Goss. Denies n/v. Tolerating diet. Eager to go home. Passing flatus/stools. No abdominal pain.
Objective Data
-
Intake and Output
07/28/23 07/29/23 07/30/23
06:59 06:59 06:59
Intake Total 680 / 920 1680 / 1680
Balance 680 / 920 1680 / 1680
Intake:
Oral fluids 680 / 920 1500 / 1500
IV fluids (Total) 180 / 180
Other:
Number of approximated MODERATE 3 2
amounts of urine
Vital Signs
Temp Pulse Resp BP Pulse Ox
97.8 F 74 16 129/64 97
07/29/23 07:00 07/29/23 07:00 07/29/23 07:00 07/29/23 07:00 07/29/23 07:00
Lab Results
07/27/23 06:36
07/29/23 06:38
Calcium 9.2 mg/dl (8.4-10.2) 07/29/23 06:38
Total Bilirubin 0.6 mg/dl (0.2-1.3) 07/26/23 06:35
AST 19 U/L (17-59) 07/26/23 06:35
ALT 16 U/L (0-50) 07/26/23 06:35
Alkaline Phosphatase 65 U/L (38-126) 07/26/23 06:35
Total Protein 6.0 g/dl (6.3-8.2) L 07/26/23 06:35
Albumin 3.5 g/dl (3.5-5.0) 07/26/23 06:35
Physical Exam
-
NAD
ABD soft, rounded, NT, ND
[2023-07-29 12:56] VITALS: BP 126/75
== END 2023-07-29 13:09 | disposition home or self-care (01) | DRG 389 ==
LOC: 4 WEST ACU 19:47
PROVIDERS: Physician Assistant; Physician Assistant Medical; ADMITTING PHYSICIAN Hospitalist; ATTENDING PHYSICIAN Internal Medicine; CONSULT PHYSICIAN Surgery; EMERGENCY PHYSICIAN Emergency Medicine; FAMILY PHYSICIAN Family Medicine
DX: K56.609 Unspecified intestinal obstruction, unspecified as to partial versus complete obstruction (principal); E87.1 Hypo-osmolality and hyponatremia; N17.9 Acute kidney failure, unspecified; N18.2 Chronic kidney disease, stage 2 (mild); I12.9 Hypertensive chronic kidney disease with stage 1 through stage 4 chronic kidney disease, or unspecified chronic kidney disease; J45.909 Unspecified asthma, uncomplicated; E11.22 Type 2 diabetes mellitus with diabetic chronic kidney disease; H35.30 Unspecified macular degeneration
CPT/HCPCS: 43752; 71045; 74018; 74176; 80048; 80053; 81003; 82962; 83036; 83605; 83690; 85025; 85027; 93005; 96361; 96374; 96375; 99285

== ENCOUNTER 2024-05-01 10:25 | Emergency (ER) | payer OTHER, SELFPAY ==
[2024-05-01 10:27] VITALS: BP 146/68
[2024-05-01 11:00] VITALS: BP 126/68
--- NOTE | 2024-05-01 11:00 | ED.MUSCINJ ---
HPI-Injury
General
Chief Complaint: Fall
Source: patient
Time Seen by Provider: 05/01/24 10:32
History of Present Illness-Injury
Initial Injury comments:
73-year-old male not anticoagulated presents after fall he sustained down 3 steps this morning. Complains of left knee and left hand pain. He did not hit his head. No neck or back pain. He denies chest pain. No other complaints at this time
Past History
Past History
ED Past Medical History: Asthma, HTN, Hypercholesterolemia, NIDDM and Other (ventral hernia, BPH)
ED Past Surgical History: Bowel resection
Social History
Tobacco: Non-smoker
Alcohol: Occasional
Drug: None
Personal:
Living: with family
Employment: Employed
Family History
Family History: Other (reviewed and noncontributory)
Phy Exam
Physical Exam
Physical Exam:
General: Well-appearing male no acute respiratory distress
HEENT: Normocephalic atraumatic
Heart: Regular rate and rhythm no murmurs lungs: Clear no wheeze
Musculoskeletal exam: Left knee with effusion tender diffusely anterior without deformity. Flexion is limited secondary to pain spine is nontender. Left hand is tender diffusely. No deformities.
Neurologic exam: Alert and oriented no facial asymmetry
Injury Course
Orders/Labs/Results
Orders:
Orders
05/01/24 10:59
CR Hand - Left Min 3 Views Urgent
Comment:
Reason For Exam: fall
CR Knee - Left 4 Or More View* Urgent
Comment:
Reason For Exam: pain
05/01/24 12:09
Knee Immobilizer Left-Treatmen ONCE
MDM/Problems Addressed
Differential Diagnosis Includes:
Dorsalis mechanical fall with left knee and left hand pain. X-rays pending to evaluate for fracture or dislocation or contusion
*Critical Care Note
Total Time (30-74mins, 75-104mins- exclusive of procedures): Not Applicable
Update Note
Update Note:
X-ray left knee and left hand both negative for acute finding however there is an effusion in the left knee. Will place knee immobilizer to the knee for potential contusion or sprain. Advise follow-up with
ED Attending Note
-
Portions of this chart may have been created with voice recognition software.� Occasional wrong word or��sound alike� substitutions may have occurred due to the inherent limitations of voice recognition software.
Discharge Plan
Departure
Patient Disposition: Home (Routine Discharge)
Date of Disposition: 05/01/24
Time of Disposition: 12:14
Patient with high blood pressure during this ER visit?: No
Discharge Problem:
Knee sprain
Instructions: Contusion (DC)
Prescriptions:
No Action
multivitamin with folic acid [Tab-A-Eusebio] 1 TABLET tablet
1 tab PO DAILY
metformin 500 mg tablet
1,000 mg PO BID@0800,1700
lisinopril 20 mg tablet
20 mg PO DAILY
simvastatin 10 mg tablet
10 mg PO QPM
glipizide 5 mg tablet extended release 24hr
5 mg PO DAILY
hydrochlorothiazide 12.5 mg capsule
12.5 mg PO DAILY
dapagliflozin propanediol [Farxiga] 5 mg tablet
5 mg PO DAILY
Referrals:
Alton Lindquist MD [Family Provider] -
Activity Restrictions/Additional Instructions:
Use Tylenol if needed for pain. Return here for worsening symptoms. Use of brace for support. Follow-up your doctor otherwise
Interventions
Interventions:
*Risk Screen - Suicide Last Done: 05/01/24 10:27
*General Assessment Last Done: 05/01/24 10:30
*Neglect/Abuse Screening Last Done: 05/01/24 10:27
*ED COVID-19 Vaccine History Last Done: 05/01/24 10:34
ED-Musculoskeletal Assessment Last Done: 05/01/24 10:36
ED- Neurological Assessment Last Done: 05/01/24 10:36
ED-Skin Assessment Last Done: 05/01/24 10:36
Discharge Date and Time
Print Language: UKRAINIAN
== END 2024-05-01 12:40 | disposition home or self-care (01) ==
LOC: EMR 10:25
PROVIDERS: EMERGENCY PHYSICIAN Student in an Organized Health Care Education/Training Program; FAMILY PHYSICIAN Family Medicine
DX: S83.92XA Sprain of unspecified site of left knee, initial encounter (principal); M79.642 Pain in left hand; W10.9XXA Fall (on) (from) unspecified stairs and steps, initial encounter; E11.9 Type 2 diabetes mellitus without complications; E78.00 Pure hypercholesterolemia, unspecified; I10 Essential (primary) hypertension; N40.0 Benign prostatic hyperplasia without lower urinary tract symptoms; J45.909 Unspecified asthma, uncomplicated
CPT/HCPCS: 29505; 99283; 73130; 73564

== ENCOUNTER 2025-01-13 06:35 | Inpatient (IN) | payer OTHER, SELFPAY ==
[2025-01-13] VITALS (7 sets, daily range): BP systolic 117–142; BP diastolic 55–69; BMI 23.1
--- NOTE | 2025-01-13 04:40 | ED.GENMED ---
History of Present Illness
General
Chief Complaint: Abdominal Symptoms
Source: patient, spouse and previous hospital records (Prior hospitalization July 2023 for treatment of acute small bowel obstruction)
Exam Limitations: none
Time Seen by Provider: 01/13/25 04:14
Nursing documentation reviewed up to this point in time: agreed with
History of Present Illness
History of Present Illness:
The patient is a 74-year-old male who presented with complaints of abdominal discomfort that started a couple of days ago. The patient describes a rumbling sensation in the stomach that he found troubling. He has had nausea and vomiting over the
past 2 days, with the patient initially feeling constipated and having his last bowel movement only slightly productive the previous morning. He reports minimal gas passage and states the abdominal pain is constant rather than intermittent. The
patient denies fever, or blood in vomit. The patient has experienced a small bowel obstruction before but is unsure if the current symptoms feel the same. There are no reports of dark or concentrated urine, and the patient claims to be urinating
without issue. Lastly, the patient notes feeling bloated. He experiences nausea and markedly decreased appetite over the past few days.
After vomiting tonight he developed some substernal chest pain. Chest pain has since resolved. He has not had a cough no shortness of breath.
Prior records reveal patient hospitalized in July 2023 with small bowel obstruction. Treated conservatively. He has history of small bowel obstruction 2013 and again 2016 with ileocecectomy performed 2016.
Past History
Past History
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
ED Past Surgical History: Bowel resection (Ileocecectomy 2016)
Social History
Tobacco: Non-smoker
Alcohol: Occasional
Drug: None
Personal:
Living: with family
Employment: Employed
Family History
Family History: Other (reviewed and noncontributory)
Phy Exam
Physical Exam
Physical Exam:
GENERAL: 74-year-old gentleman appears his stated age, awake and alert, appears in mild distress related to pain. Holding emesis basin at the ready.
EYE: pupils equal and reactive. anicteric
NECK: Supple, nontender, no meningismus, no significant adenopathy.
ENT: oral mucosa is dry. No rhinorrhea.
CARDIAC: Regular rhythm, tachycardic, no murmur.
LUNGS: Clear breath sounds bilaterally, no acute respiratory distress, no wheezes/rales/rhonchi
ABDOMEN: Rotund, mildly distended, moderate generalized tenderness to the lower abdomen with exquisite tenderness right lower quadrant, no r/g, no cvat. Hypoactive bowel sounds.
NEUROLOGICAL: Alert and oriented x3, no focal neuro deficits.
SKIN: Warm and dry, normal color, skin intact. No rash.
MUSCULOSKELETAL: No C/C/E. peripheral pulses are full and equal b/l. No palpable tenderness.
PSYCH: Normal and appropriate interaction.
Sepsis
Sepsis Screening
Sepsis Assessment: Sepsis Ruled Out
Sepsis Screen
Sepsis Screen: Sepsis Ruled Out
Date: 01/13/25
Time: 06:09
Course
Orders/Labs/Results
Orders:
Orders
01/13/25 04:20
Cardiac Monitoring- Treatment ONCE
IV Insert/Care/Rem.- Treatment PRN
O2 Therapy [RESP] Urgent
Titrate/Wean O2 to maintain O2 sat greater than (%): 93
Special Instructions: TO MAINTAIN CONTINUOUS O2 SATS > OR = 93%
Pulse Ox/cont/shift [RESP] Urgent
Quantity: 1
Special Instructions: CONTINUOUS
01/13/25 04:34
Complete Blood Count/With Diff Urgent
Comprehensive Metabolic Panel Urgent
Lipase Urgent
Magnesium Urgent
01/13/25 04:35
Electrocardiogram (*1) Urgent
Reason for Study: Chest Pain
EKG- Treatment ONCE
01/13/25 04:36
0.9% Sodium Chloride 1000 ml [Nss] 2,000 ml IV BOLUS
01/13/25 04:38
Morphine Sulfate 4 mg IV NOW STA
Ondansetron Injectable [Zofran] 4 mg IV NOW STA
01/13/25 04:39
Lactic Acid Urgent
Troponin I Urgent
01/13/25 05:22
CT Abd/pel Without Iv Or Oral Urgent
Comment:
Reason For Exam: gen mid/lower abd pain, N/V x few days-hx SBO
01/13/25 06:04
GI tube insertion- Treatment ONCE
Abnormal Lab Results
01/13/25 01/13/25
04:34 04:39
WBC 13.5 H 10^3/uL
(4.8-10.8)
RBC 4.38 L 10^6/uL
(4.70-6.10)
Hgb 11.7 L g/dL
(13.0-18.0)
Hct 37.4 L %
(39.0-52.0)
MCH 26.7 L pg
(27.0-31.0)
MCHC 31.3 L g/dL
(33.0-37.0)
Plt Count 466 H 10^3/uL
(130-400)
Absolute Neuts (auto) 11.4 H 10^3/uL
(1.4-6.5)
Absolute Lymphs (auto) 0.6 L 10^3/uL
(1.2-3.4)
Absolute Monos (auto) 1.2 H 10^3/uL
(0.1-0.6)
Neutrophils % 84.2 H %
(42.2-75.2)
Lymphocytes % 4.2 L %
(20.5-51.1)
Carbon Dioxide 21 L mmol/L
(22-30)
BUN 52 H mg/dl
(9-20)
Creatinine 2.0 H mg/dL
(0.7-1.3)
Glucose 200 H mg/dl
(70-99)
Lactic Acid 3.5 H mmol/L
(0.7-2.0)
Magnesium 1.4 L mg/dl
(1.6-2.3)
AST 16 L U/L
(17-59)
01/13/25 04:34
01/13/25 04:34
Vital Signs
Initial and Last Documented VS:
Initial Vital Signs
Temp Pulse Resp BP Pulse Ox
99.1 F 130 26 126/66 98
01/13/25 04:06 01/13/25 04:06 01/13/25 04:06 01/13/25 04:06 01/13/25 04:06
Last Documented Vital Signs
Temp Pulse Resp BP Pulse Ox
99.1 F 118 16 133/61 98
01/13/25 04:06 01/13/25 04:20 01/13/25 04:20 01/13/25 04:19 01/13/25 04:51
MDM/Problems Addressed
Differential Diagnosis Includes:
The Differential Diagnosis includes, in no particular order and is not limited to:
1. Small bowel obstruction.
2. Constipation.
3. Gastroenteritis.
4. Peptic ulcer disease.
5. Pancreatitis.
6. Bowel perforation.
7. Diverticulitis.
8. Gastroesophageal reflux disease (GERD).
9. Mesenteric ischemia.
10. Colonic obstruction.
11. ACS
12. GERD
MDM/Problems Addressed:
Abdominal pain, nausea, vomiting, constipation
Acute chest pain after vomiting
Significant concern for recurrent small bowel obstruction.
Clinically patient appears moderately dehydrated.
Borderline low-grade fever noted initially, upon recheck he is afebrile and reports no recent fever.
Will check labs including lactic acid, initiate IV fluids, medicate for pain and nausea.
Will check EKG as well as troponin.
Will plan on CT abdomen pelvis with IV contrast. He does have history of chronic kidney disease, mild, baseline creatinine appears to be 1.2/to 1.3. History of acute kidney injury related to dehydration. Depending on creatinine, may have to
abandon IV contrast. At this point patient, due to significant nausea, dry heaves, will not tolerate oral contrast.
Chronic conditions affecting care: DM, HTN, Neurological disorder and Kidney disease
*Radiology
Radiology exam reviewed: radiology read reviewed
*Pulse Oximetry
SaO2: 98
Oxygen Mode of Delivery: Room air
Patient hypoxic: no
*EKG
Interpreted by ED Provider?: Yes
Interpretation: abnormal
Comparison EKG: no changes (Unchanged from previous July 2023)
Rate: tachycardiac
Rhythm: sinus
[place]: left axis deviation
Interval: normal interval
QRS Pattern: right bundle branch block (Incomplete right bundle branch block)
Ischemia: non-specific ST changes
*Care Transitions Manager Interpretation
Rate: tachycardiac
Interpretation: abnormal
Rhythm: sinus
*Critical Care Note
Total Time (30-74mins, 75-104mins- exclusive of procedures): Not Applicable
Update Note
Update Note:
06:04
Patient feeling improved after IV morphine and Zofran. IV fluids continue.
Labs remarkable for moderately elevated white blood cell count, mild to moderate lactic acidosis, significant acute kidney injury�likely related to acute dehydration.
He remains hemodynamically stable.
CT shows acute small bowel obstruction with transition point at surgical anastomosis in the right lower quadrant. Upstream stomach distention. As such we will plan for NG tube insertion.
There is also note of esophagitis with small hiatal hernia. This is likely cause for chest pain after vomiting. EKG is similar and unchanged from previous and troponin is within normal limits.
Will continue IV fluid resuscitation, pain medication and antiemetics as needed and will admit to hospitalist service.
ED Attending Note
-
Portions of this chart may have been created with voice recognition software.� Occasional wrong word or��sound alike� substitutions may have occurred due to the inherent limitations of voice recognition software.
Discharge Plan
Departure
Patient Disposition: Admit
Date of Disposition: 01/13/25
Time of Disposition: 06:06
Admit to: Med/Surg
Admit to doctor: Sánchez
Presentation/result/management discussed w/ accepting MD/DO: Hospitalist
Condition: Serious
Discharge Problem:
Acute small bowel obstruction, Acute kidney injury superimposed on chronic kidney disease, Acute lactic acidosis
Prescriptions:
No Action
multivitamin with folic acid [Tab-A-Eusebio] 1 TABLET tablet
1 tab PO DAILY
metformin 500 mg tablet
1,000 mg PO BID@0800,1700
lisinopril 20 mg tablet
20 mg PO DAILY
simvastatin 10 mg tablet
10 mg PO QPM
glipizide 5 mg tablet extended release 24hr
5 mg PO DAILY
hydrochlorothiazide 12.5 mg capsule
12.5 mg PO DAILY
dapagliflozin propanediol [Farxiga] 5 mg tablet
5 mg PO DAILY
Referrals:
Alton Lindquist MD [Family Provider, Family Practice]
Interventions
Interventions:
*Risk Screen - Suicide Last Done: 01/13/25 04:06
*General Assessment Last Done: 01/13/25 04:22
*Neglect/Abuse Screening Last Done: 01/13/25 04:06
*ED- Fall Risk Assessment Last Done: 01/13/25 04:22
*ED COVID-19 Vaccine History Last Done: 01/13/25 04:22
*ED Influenza Vaccine History Last Done: 01/13/25 04:22
AI-Erbdsq-Ldqjzyacnn Assessment Last Done: 01/13/25 04:23
Discharge Date and Time
Print Language: SYRIAC
[2025-01-13] MEDS: ZOFRAN 4 MG IV (04:42)
[2025-01-13] MEDS: NSS 2000 IV (04:42)
[2025-01-13] MEDS: MORPHINE SULFATE 4 MG IV (04:42)
[2025-01-13 04:47] LABS: Hematocrit 37.4 % (39.0-52.0); Hemoglobin 11.7 g/dL (13.0-18.0); Mean Corp Hgb Conc. 31.3 g/dL (33.0-37.0); Mean Corpuscular Volume 85.4 fL (80.0-94.0); Nucleated Red Blood Cells % 0 % (-); Platelet Count 466 10^3/uL (130-400); Red Cell Dist. Width 13.2 % (11.5-14.5)
[2025-01-13 05:12] LABS: ALT (SGPT) 16 U/L (0-50); AST (SGOT) 16 U/L (17-59); Albumin 4.3 g/dl (3.5-5.0); Alkaline Phosphatase 65 U/L (38-126); Blood Urea Nitrogen 52 mg/dl (9-20); Calcium 8.9 mg/dl (8.4-10.2); Carbon Dioxide 21 mmol/L (22-30); Chloride 102 mmol/L (98-107); Estimated Creatinine Clearance 32 ml/min; Glucose 200 mg/dl (70-99); Lipase 49 U/L (23-300); Magnesium 1.4 mg/dl (1.6-2.3); Potassium 4.8 mmol/L (3.5-5.1); Sodium 138 mmol/L (135-145); Total Protein 7.0 g/dl (6.3-8.2); eGFR 33.95
[2025-01-13 05:23] LABS: Troponin I 0.018 ng/ml
[2025-01-13] MEDS: LIDOCAINE URO-JET 2% 1 SYRINGE TOPICAL (06:26)
--- NOTE | 2025-01-13 06:31 | HPS.HSE ---
Family Physician
-
Family Physician: Alton Lindquist
Chief Complaint
-
Abd Pain, N/V
History of Present Illness
Patient is a 74y M with PMH significant for hypertension, DM-II and prior SBO who presents to ED complaining of abdominal pain and N/V. Patient states that he started with abdominal pain about 2 days ago. His pain has increased in frequency and
severity since that time. Today he developed N/V and reports multiple episodes of non-bloody emesis throughout the day. This evening with ongoing symptoms he presented to the ED for further evaluation.
Patient reports diaphoresis and lightheadedness prior to emesis episodes.
He denies any fevers / chills. No other new complaints / concerns.
Patient states that his last BM was Sunday morning. He notes that he has continued to have passage of flatus - even here in the ED.
Medical History
Past Medical History
Past Medical History: Reports Other
Additional Past Medical History:
Hypertension
DM-II
CKD III
Past Surgical History: Reports Other
Additional Past Surgical History:
Lap Assisted Ileocecectomy (2017) - for chronic ileitis / stricture.
Social History
Tobacco: Non-smoker
Alcohol: None
Drug: None
Family History
Family History: Not pertinent
Allergies / Home Medications
Allergies reflects when Allergies were last updated in [facility].
Home Medications with original date entered in [facility]
Allergy/Medication List:
Allergies
Allergy/AdvReac Type Severity Reaction Status Date / Time
No Known Allergies Allergy Verified 01/13/25 04:08
Home Medications
dapagliflozin propanediol 10 mg tablet (Farxiga) 10 mg PO DAILY 01/13/25
hydrochlorothiazide 12.5 mg capsule 12.5 mg PO DAILY 01/13/25
lisinopril 20 mg tablet 20 mg PO DAILY 01/13/25
metformin 500 mg tablet 1,000 mg PO BID 01/13/25
Review of Systems
-
History Source: Patient
A 12 point ROS was completed and negative except as noted: Yes
Constitutional: Denies Fever or Chills
Respiratory: Denies Cough or Trouble Breathing
Cardiac: Reports Chest Pain and Diaphoresis; Denies Palpitations or Syncope
Abdomen/GI: Reports Abdominal Pain, Nausea and Vomiting; Denies Diarrhea
: Denies Dysuria or Frequency
Neurological: Denies Dizzy or Headache
Psych: Denies Depression or Anxiety
Physical Exam
Vital Signs
Vital Signs
Temp Pulse Resp BP Pulse Ox
99.1 F 118 16 133/61 98
01/13/25 04:06 01/13/25 04:20 01/13/25 04:20 01/13/25 04:19 01/13/25 04:51
Physical Exam
General: Other (74y M in no acute distress.)
HEENT: Moist mucous membranes and PERRLA
Respiratory: Clear; No Wheezes, Rales or Rhonchi
Cardiac: S1/S2 and Regular Rhythm; No Murmur
GI: Other (Abdomen is distended / tympanic. Mild, diffuse tenderness. Bowel sounds are present.)
Musculoskeletal: No Clubbing, No Cyanosis and No Edema
Neuro: AO x 3
Laboratory Results
-
01/13/25 04:34
01/13/25 04:34
Laboratory Results
Lactic Acid 3.5 mmol/L (0.7-2.0) H 01/13/25 04:39
Total Bilirubin 0.5 mg/dl (0.2-1.3) 01/13/25 04:34
AST 16 U/L (17-59) L 01/13/25 04:34
ALT 16 U/L (0-50) 01/13/25 04:34
Alkaline Phosphatase 65 U/L (38-126) 01/13/25 04:34
Troponin I 0.018 ng/ml 01/13/25 04:39
Lipase 49 U/L (23-300) 01/13/25 04:34
Impression/Plan
-
A/P: Patient is a 74y M with PMH significant for hypertension, DM-II and prior SBO who presents to ED for evaluation of abdominal pain and N/V.
SBO
- Admit for further evaluation and treatment.
- CT scan shows SBO with transition point in the RLQ at site of prior anastomosis.
- Lactate = 3.[address] evidence of closed loop obstruction, pneumatosis, etc.
- NG placed in the ED for decompression.
- Continue medical management including IVFs, NPO, antiemetics and pain control.
- Cover with IV abx for now - though suspect SIRS findings are due to pain / distress rather than infectious etiology.
- Surgery evaluation for additional recommendations / intervention if needed.
- Follow for clinical improvement.
TATIANNA on CKD III
- SCr = 2 compared to baseline of 1.2.
- Holding lisinopril acutely.
- IVFs support.
- Follow labs, lactate, etc for improvement.
Benign Hypertension
- Hold lisinopril and HCTZ as noted above.
DM-II
- Hold PO meds acutely.
- Follow glucose and cover with SSI if needed.
- Update A1C.
DVT Prophylaxis: SCDs
Code Status: Full
--- NOTE | 2025-01-13 08:05 | CON.GS ---
Medical History
-
Chief Complaint: Abdominal pain, nausea, emesis
History of Present Illness:
Patient is a 74 yo M with a PMH of asthma, HTN, NIDDM, CKD, and s/p laparoscopic assisted ileocecectomy [place] [address] Vernon. Mr. Minor presents with 48 hours of nausea, vomiting, crampy lower abdominal pain, and bloating. Symptoms began
somewhat acutely approximately 48 hours ago. He does report having a salad prior to the onset of his symptoms. He states that he has previously had fresh fruits and vegetables without any issues. He does not follow any specific dietary
changes/modifications. He last passed flatus a few hours ago. His last bowel movement was earlier this AM. following a dose of MiraLAX. He was previously admitted to back in 07/2023 for similar symptoms. Successful medical management with
discharge on HD3.
Of note, his last colonoscopy was in 2013. He was noted to have a single erosion at the ileocecal valve without any significance stricturing. Biopsy at that time was notable for acute on chronic ulcerative ileitis with partial villous blunting and
evidence of crypt send stromal fibrosis, no granulomas, features suggestive of idiopathic inflammatory bowel disease. Pathology from his surgical specimen demonstrates focal transmural chronic ileitis with mucosal ulcerations, fissure formation,
and stricture formation. No evidence of dysplasia or malignancy. He has not had a repeat colonoscopy. He does not follow with a GI physician.
Past Medical History
Past Medical History: HTN, NIDDM and Renal Failure
Past Surgical History: Appendectomy and Bowel Resection (Laparoscopic assisted ileocecectomy [place] [address] Josette Vernon)
Social History
Tobacco: Non-Smoker
Alcohol: None
Drug: None
Family History
Family History: Reviewed & Noncontributory (No reported family members with IBD or colon cancer)
Allergies / Home Medications
Allergy/AdvReac Type Severity Reaction Status Date / Time
No Known Allergies Allergy Verified 01/13/25 04:08
�Medication �Instructions �Recorded �Confirmed �Type
dapagliflozin propanediol 10 mg 10 mg PO DAILY 01/13/25 01/13/25 History
tablet (Farxiga)
hydrochlorothiazide 12.5 mg capsule 12.5 mg PO DAILY 01/13/25 01/13/25 History
lisinopril 20 mg tablet 20 mg PO DAILY 01/13/25 01/13/25 History
metformin 500 mg tablet 1,000 mg PO BID 01/13/25 01/13/25 History
Review of Systems
-
A 10 point review of systems was completed, and was negative except as per HPI.
Physical Exam
Vital Signs
Temp Pulse Resp BP Pulse Ox
99.1 F 106 16 136/67 97
01/13/25 04:06 01/13/25 06:45 01/13/25 06:45 01/13/25 06:00 01/13/25 06:15
01/12/25 01/13/25 01/14/25
06:59 06:59 06:59
Actual Weight 73 kg
Body Mass Index (BMI) 23.1
Lab Results
01/13/25 04:34
01/13/25 04:34
WBC 13.5 10^3/uL (4.8-10.8) H 01/13/25 04:34
Hgb 11.7 g/dL (13.0-18.0) L 01/13/25 04:34
Hct 37.4 % (39.0-52.0) L 01/13/25 04:34
Plt Count 466 10^3/uL (130-400) H 01/13/25 04:34
Abs Immat Gran (auto) 0.0 10^3/uL (0-0.05) 01/13/25 04:34
Neutrophils % 84.2 % (42.2-75.2) H 01/13/25 04:34
Physical Exam
General: Well Developed, Well Nourished and Pain
HEENT: Normocephalic, Anicteric and Other (NGT with dark bilious output)
Respiratory: Non Labored Respirations
Cardiac: Irregular Rhythm (Tachycardic)
GI: Soft, Tender (diffusely though primarily in lower abdomen), Distended (Tympanitic), Incisions (Dinorah-umbilical well healed) and Other (Non-peritoneal (no rebound or guarding))
Musculoskeletal: No Edema
Skin: Warm and Dry
Neuro: Nonfocal/Grossly Intact
Data Reviewed
-
CT Scan: Image Personally Visualized and interpreted and Report Reviewed by me
Labs: Labs Reviewed by me
Old Records: Reviewed
Assessment / Plan
-
Patient is a 74 yo M p/w high-grade pSBO at the site of his prior ileocecectomy
The natural history and pathophysiology of bowel obstructions was reviewed. Difficult to tell if this is related to a extraluminal adhesion from his prior procedure versus recurrent intraluminal narrowing or stricturing. Prior history and
pathology does raise concern for possible underlying IBD. No radiographic evidence of pneumatosis or free air. No mesenteric swirling or evidence of an internal hernia. Elevated WBC, lactate, kidney function, and heart rate likely reflective of
dehydration, less likely bowel ischemia given his CT scan findings.
Options for management reviewed. Recommend trial of medical management with NGT decompression. Repeat abdominal x-ray ordered to confirm placement of his NGT. Role of acute and elecative surgical intervention was reviewed. Role of GI evaluation
(inpatient versus outpatient) and repeat colonoscopy to rule further evaluate his neoterminal ileum helping to better rule out IBD and a more intraluminal process as well as potentially therapeutic intraluminal interventions were discussed. All
questions answered.
-- X-ray abdomen to confirm NGT placement
-- NPO, IVF
-- Trend labs
-- Will eventually need GI evaluation (expedited outpatient) for repeat colonoscopy
--- NOTE | 2025-01-13 09:12 | CM ---
CM reviewed chart and met with pt bedside in 1 Acute. Lives with his SO Ada in 2 story home, 1 LINA, has first floor half bath, full flight to second floor bedroom and full bath.
Independent in ADLs, personal care and ambulation at baseline, no assistive devices.
Confirmed prescription coverage.
No hx VN, hx [facility].
PCP: Alton Van
Pharmacy: [facility] [address]
Anticipate discharge home, CM will continue to follow for all discharge planning needs.
[2025-01-13] MEDS: PROTONIX IV 40 MG IV (09:21)
[2025-01-13] MEDS: NSS (PRESERVATIVE FREE) 10 ML IV (09:21)
[2025-01-13] MEDS: NSS 1000 IV ×2 (09:33→17:01)
[2025-01-13] MEDS: NOVOLOG FLEXPEN-LOW RESISTANCE SC ×3 (09:33→17:01)
[2025-01-13 09:34] LABS: Glucose - Point of Care 156 mg/dl (70-99)
[2025-01-13] MEDS: ZOSYN 50 IV ×3 (10:44→19:49)
[2025-01-13 11:38] LABS: Glucose - Point of Care 150 mg/dl (70-99)
[2025-01-13] MEDS: TYLENOL 650 MG PO (13:24)
--- NOTE | 2025-01-13 14:54 | CM ---
New SBO, NPO, NGT, surgical consult, IV/Zosyn. Discharge POC: TBD. Anticipate no needs if no surgical intervention.
--- NOTE | 2025-01-13 16:38 | W.PN.UPDATE ---
Update Note
Progress Note Update
Seen and examined.
Abdomen is distended tympanic NGT to wall decompression
Surgery following
Likely for small bowel follow-through
[2025-01-13 16:54] LABS: Glucose - Point of Care 116 mg/dl (70-99)
[2025-01-14 00:15] LABS: Glucose - Point of Care 105 mg/dl (70-99)
[2025-01-14] MEDS: ZOSYN 50 IV ×5 (01:31→23:58)
--- NOTE | 2025-01-14 02:20 | DOWNTIME ---
There was a [employer] Client Tailer In Downtime on 01/14/2025 from 0100 to 01/14/2025 at 0215. Downtime documentation of patient's care, including medication administrations, has been reconciled in the electronic record per guidelines. Refer to the
patient's paper chart under the miscellaneous tab to see printed paper medication records and downtime forms.
[2025-01-14 06:16] LABS: Glucose - Point of Care 117 mg/dl (70-99)
[2025-01-14] MEDS: PROTONIX IV 40 MG IV (07:23)
[2025-01-14] MEDS: NSS (PRESERVATIVE FREE) 10 ML IV (07:24)
[2025-01-14 07:50] VITALS: BP 134/64
[2025-01-14] MEDS: NOVOLOG FLEXPEN-LOW RESISTANCE SC ×3 (08:27→17:42)
[2025-01-14 08:30] LABS: Hematocrit 32.5 % (39.0-52.0); Hemoglobin 10.0 g/dL (13.0-18.0); Mean Corp Hgb Conc. 30.8 g/dL (33.0-37.0); Mean Corpuscular Volume 90.0 fL (80.0-94.0); Platelet Count 363 10^3/uL (130-400); Red Cell Dist. Width 13.2 % (11.5-14.5)
--- NOTE | 2025-01-14 08:41 | W.PN.HOSP.TC ---
Today's Communication/Plan
-
Assessment / Plan
Assessment / Plan
NAD
Scleral Anicteric
MMM
No JVD
CTABL
RRR, S1/S2
Soft, distended abd, tympanic
Warm, Dry
AAOx3
Calm
SBO, high-grade partial
S/p NGT
Surgery following
IV fluids
Analgesia clinical antiemetics
LPer surgery NGT clamped
-Potentially to be removed
TATIANNA on CKD stage II
Hold lisinopril
IV fluids
Avoid nephrotoxins hypotension
Lactic acidosis
Resolved, in the setting of SBO
Hypertension
Hold lisinopril hydrochlorothiazide
Diabetes type 2
Hold p.o. oral hypoglycemics
Sliding scale
A1c
Accu-Cheks
Blood glucose 140-180
May need to provide dextrose containing fluids if still n.p.o.
Anticipated Discharge: 24 - 48 hours
Subjective/Interval History
-
Date of Service: January 14, 2025
Seen and examined. No new complaints. No acute overnight events.
Passing flatus
Had 2 diarrheal episodes this morning
Surgery clamped NGT
Reassessed at 3 PM
Potentially NGT to be removed clear liquid diet later today
Objective Data
-
Labs:
Laboratory Results
01/14/25
07:41
WBC 7.5
Hgb 10.0 L
Hct 32.5 L
Plt Count 363 D
Sodium Pending
Potassium Pending
Chloride Pending
Carbon Dioxide Pending
BUN Pending
Creatinine Pending
Glucose Pending
Calcium Pending
Vital Signs:
Vital Signs
Temp Pulse Resp BP Pulse Ox
97.5 F 90 16 134/64 94
01/14/25 07:50 01/14/25 07:50 01/14/25 07:50 01/14/25 07:50 01/14/25 07:50
I&O
01/13/25 01/14/25 01/15/25
06:59 06:59 06:59
Intake Total 1390 / 1390
Output Total 1225 / 1225
Balance 165 / 165
[2025-01-14 08:44] LABS: Blood Urea Nitrogen 30 mg/dl (9-20); Calcium 7.7 mg/dl (8.4-10.2); Carbon Dioxide 24 mmol/L (22-30); Chloride 107 mmol/L (98-107); Estimated Creatinine Clearance 43 ml/min; Glucose 112 mg/dl (70-99); Potassium 4.2 mmol/L (3.5-5.1); Sodium 138 mmol/L (135-145); eGFR 47.95
[2025-01-14 09:16] LABS: Glycohemoglobin (HgbA1c) 7.1 % (4.0-5.6)
[2025-01-14] MEDS: NSS IV (10:14)
[2025-01-14] MEDS: D5/0.45%NACL 1000 IV ×2 (10:17→23:58)
--- NOTE | 2025-01-14 10:40 | W.PN.GS2 ---
Today's Communication / Plan
-
Clamp trial
Assessment / Plan
-
74M with resolving pSBO
AFVSS, clinically improved with resolution of nausea, improvement in painand passage of stool and flatus
WBC normalized
Plan:
NGT clamp trial
CLD later today if no issues
All other care as per primary team
Subjective Data
-
Date of Service: January 14, 2025
AFVSS, ambulating, passing BMs and flatus, abd pain improved, nausea resolved
Objective Data
-
Intake and Output
01/13/25 01/14/25 01/15/25
06:59 06:59 06:59
Intake Total 1390 / 1390
Output Total 1225 / 1225
Balance 165 / 165
Intake:
IV fluids (Total) 1200 / 1200
IV piggybacks 100 / 100
Amount instilled into GI Tube ( 90 /
Total)
[place] Sump 90 / 90
Output:
Gastrointestinal tube output (
Total)
[place] Sump
Urine, Voided 1200 / 1200
Vital Signs
Temp Pulse Resp BP Pulse Ox
97.5 F 90 16 134/64 94
01/14/25 07:50 01/14/25 07:50 01/14/25 07:50 01/14/25 07:50 01/14/25 07:50
Lab Results
01/14/25 07:41
01/14/25 07:41
Calcium 7.7 mg/dl (8.4-10.2) L 01/14/25 07:41
Magnesium 1.4 mg/dl (1.6-2.3) L 01/13/25 04:34
Total Bilirubin 0.5 mg/dl (0.2-1.3) 01/13/25 04:34
AST 16 U/L (17-59) L 01/13/25 04:34
ALT 16 U/L (0-50) 01/13/25 04:34
Alkaline Phosphatase 65 U/L (38-126) 01/13/25 04:34
Total Protein 7.0 g/dl (6.3-8.2) 01/13/25 04:34
Albumin 4.3 g/dl (3.5-5.0) 01/13/25 04:34
Physical Exam
-
Gen: NAD
Abd: soft, mild distention, nt; NGT with scant clear adams fluid
Patient has a peng catheter: No
Patient has a central line: No
[2025-01-14 11:55] LABS: Glucose - Point of Care 113 mg/dl (70-99)
--- NOTE | 2025-01-14 15:24 | CM ---
NGT clamp trial, probable d/c today and initiation of clear liquid diet,surgery following, SBO resolving. Dicharge POC: Anticipate home with no needs.
[2025-01-14 15:41] VITALS: BP 136/69
--- NOTE | 2025-01-14 16:55 | PTCARENOTE ---
Patient NG unclamped, 5ml of gastric juice removed with syringe. NG TUBE removed patient tolerated well. Advanced to clear liquid diet per Dr. Vegas verbal order.
[2025-01-14 17:31] LABS: Glucose - Point of Care 105 mg/dl (70-99)
[2025-01-14 22:01] LABS: Glucose - Point of Care 160 mg/dl (70-99)
[2025-01-15] MEDS: TYLENOL 650 MG PO (00:02)
[2025-01-15 00:14] VITALS: BP 136/67
[2025-01-15] MEDS: ZOSYN 50 IV (06:02)
[2025-01-15 07:38] LABS: Glucose - Point of Care 161 mg/dl (70-99)
--- NOTE | 2025-01-15 07:51 | W.PN.GS2 ---
Addendum entered and electronically signed by Arsenio Padgett MD 01/15/25 08:06:
Patient seen and examined with surgical DELIVERY CLERK. Agree with documented progress note with additions noted here.
Clinically improving. Passing flatus regularly, multiple bowel movements yesterday but none overnight or today.
Denies feeling distended or bloated. Denies abdominal pain. No nausea. Feels ready for dietary advancement but wants to go slow.
AFVSS
A.m. labs pending
NAD AAO x 3
ABD: Softly protuberant with some tympany on percussion. No tenderness.
Assessment/plan: 74-year-old male with clinically resolving partial small bowel obstruction
Continue with dietary advancement -fulls for lunch then advance diet as tolerated to low residue
Okay for discharge either in p.m. after tolerates full liquids or continue to monitor for full dietary advancement
Original Note:
Today's Communication / Plan
-
Advance diet as tolerated
Assessment / Plan
-
74M with resolving pSBO
AFVSS,
Clinically improved
Labs for today pending
NGT out on 01/14, tolerating clears. Multiple BM's yesterday
Plan:
FLD for next meal, then ADAT to low residue
D/C IVF and abx
All other care as per primary team
Subjective Data
-
Date of Service: January 15, 2025
Pt seen and examined at bedside with Dr. Padgett. Denies n/v. Tolerating liquids. Passing flatus. Multiple loose BM's yesterday. Denies pain. Feels relatively back to normal.
Objective Data
-
Intake and Output
01/14/25 01/15/25 01/16/25
06:59 06:59 06:59
Intake Total 1390 / 1390
Output Total 1225 / 1225 1050 / 1050
Balance 165 / 165 -1050 / -1050
Intake:
IV fluids (Total) 1200 / 1200
IV piggybacks 100 / 100
Amount instilled into GI Tube (
Total)
[place] Sump
Output:
Gastrointestinal tube output (
Total)
[place] Sump
Urine, Voided 1200 / 1200 1050 / 1050
Other:
Number of approximated MODERATE 1
amounts of urine
Number of approximated LARGE 1
amounts of urine
Vital Signs
Temp Pulse Resp BP Pulse Ox
97.6 F 82 18 136/67 97
01/15/25 00:14 01/15/25 00:14 01/15/25 00:14 01/15/25 00:14 01/15/25 00:14
Calcium 7.7 mg/dl (8.4-10.2) L 01/14/25 07:41
Magnesium 1.4 mg/dl (1.6-2.3) L 01/13/25 04:34
Total Bilirubin 0.5 mg/dl (0.2-1.3) 01/13/25 04:34
AST 16 U/L (17-59) L 01/13/25 04:34
ALT 16 U/L (0-50) 01/13/25 04:34
Alkaline Phosphatase 65 U/L (38-126) 01/13/25 04:34
Total Protein 7.0 g/dl (6.3-8.2) 01/13/25 04:34
Albumin 4.3 g/dl (3.5-5.0) 01/13/25 04:34
Physical Exam
-
Gen: NAD
Abd: soft, mild distention (tympany present), nt
Patient has a peng catheter: No
Patient has a central line: No
[2025-01-15 07:55] VITALS: BP 136/64
[2025-01-15 08:17] LABS: Hematocrit 30.6 % (39.0-52.0); Hemoglobin 9.6 g/dL (13.0-18.0); Mean Corp Hgb Conc. 31.4 g/dL (33.0-37.0); Mean Corpuscular Volume 87.2 fL (80.0-94.0); Platelet Count 371 10^3/uL (130-400); Red Cell Dist. Width 13.2 % (11.5-14.5)
[2025-01-15] MEDS: NOVOLOG FLEXPEN-LOW RESISTANCE 1 UNITS SC ×3 (08:34→18:11)
[2025-01-15] MEDS: PROTONIX IV 40 MG IV (08:36)
[2025-01-15] MEDS: NSS (PRESERVATIVE FREE) 10 ML IV (08:36)
[2025-01-15 09:28] LABS: Blood Urea Nitrogen 15 mg/dl (9-20); Calcium 8.2 mg/dl (8.4-10.2); Carbon Dioxide 26 mmol/L (22-30); Chloride 106 mmol/L (98-107); Estimated Creatinine Clearance 54 ml/min; Glucose 170 mg/dl (70-99); Potassium 3.9 mmol/L (3.5-5.1); Sodium 135 mmol/L (135-145); eGFR > 60.00
[2025-01-15 11:42] LABS: Glucose - Point of Care 185 mg/dl (70-99)
[2025-01-15] MEDS: D5/0.45%NACL IV (15:09)
--- NOTE | 2025-01-15 15:33 | CM ---
SBO resolving, bowel function returning, advance diet to low residue for dinner. Discharge POC: Anticipate home with no needs.
[2025-01-15 15:37] VITALS: BP 139/69
[2025-01-15 16:23] LABS: Glucose - Point of Care 154 mg/dl (70-99)
[2025-01-15] MEDS: FLUSH (NSS) 1 FLUSH IV (20:30)
[2025-01-15 21:37] LABS: Glucose - Point of Care 140 mg/dl (70-99)
[2025-01-15 22:58] VITALS: BP 134/63
[2025-01-16 07:48] LABS: Glucose - Point of Care 139 mg/dl (70-99)
[2025-01-16 08:00] VITALS: BP 150/76
[2025-01-16] MEDS: NOVOLOG FLEXPEN-LOW RESISTANCE SC (09:26)
[2025-01-16] MEDS: NSS (PRESERVATIVE FREE) 10 ML IV (09:26)
[2025-01-16] MEDS: PROTONIX IV 40 MG IV (09:27)
--- NOTE | 2025-01-16 09:29 | W.PN.GS2 ---
Today's Communication / Plan
-
LRD
Dispo planning
Assessment / Plan
-
74M with resolving pSBO
AFVSS,
Clinically improved
Passing flatus/stools and tolerating LRD
Plan:
Continue LRD
Ok for discharge from surgical standpoint
All other care as per primary team
Subjective Data
-
Date of Service: January 16, 2025
Pt seen and examined at bedside with Dr. Schilling. Continues passing flatus with some soft stools last night. Denies n/v. Tolerating dietary advancements. Denies pain.
Objective Data
-
Intake and Output
01/15/25 01/16/25 01/17/25
06:59 06:59 06:59
Intake Total 660 / 660
Output Total 1050 / 1050 350 / 350
Balance -1050 / -1050 310 / 310
Intake:
Oral fluids 660 / 660
Output:
Urine, Voided 1050 / 1050 350 / 350
Other:
Number of approximated MODERATE 1 2
amounts of urine
Number of approximated LARGE 1
amounts of urine
Number of unmeasured liquid
stools
Rectum 1
Vital Signs
Temp Pulse Resp BP Pulse Ox
97.9 F 86 18 150/76 95
01/16/25 08:00 01/16/25 08:00 01/16/25 08:00 01/16/25 08:00 01/16/25 08:00
Lab Results
01/15/25 07:51
01/15/25 07:51
Calcium 8.2 mg/dl (8.4-10.2) L 01/15/25 07:51
Magnesium 1.4 mg/dl (1.6-2.3) L 01/13/25 04:34
Total Bilirubin 0.5 mg/dl (0.2-1.3) 01/13/25 04:34
AST 16 U/L (17-59) L 01/13/25 04:34
ALT 16 U/L (0-50) 01/13/25 04:34
Alkaline Phosphatase 65 U/L (38-126) 01/13/25 04:34
Total Protein 7.0 g/dl (6.3-8.2) 01/13/25 04:34
Albumin 4.3 g/dl (3.5-5.0) 01/13/25 04:34
Physical Exam
-
Gen: NAD
Abd: soft, nd, nt
Patient has a peng catheter: No
Patient has a central line: No
--- NOTE | 2025-01-16 10:54 | CM ---
MD entered order for discharge.
Spoke with patient in room .He said he is ready
SO Ada will drive him home.
Offered VN he declined need.
PLAN Home no needs
--- NOTE | 2025-01-16 13:04 | W.DCSUMMARY ---
Discharge Summary
Discharge Data
Date of Admission: 01/13/25
Date of Discharge: 01/16/25
-
Pending Results: No
Hospital Course
74y M with PMH significant for hypertension, DM-II and prior SBO
Presented with abdominal pain nausea vomiting legs increasing with severity and associated with multiple episodes of nonbloody vomiting. CT demonstrated small bowel obstruction with transition point to right lower quadrant at site of prior
anastomosis. There is good IV fluids. NG tube placed. Evaluated by surgery eventually improvement in symptomatology. Advance diet as tolerated. Tolerated well and was able to be discharged home. Will need continued outpatient GI follow-up in
expedited Colonoscopy and outpatient surgery follow up along with PCP.
CTAP IMPRESSION:
1. Findings consistent with high-grade small bowel obstruction, transition point at a right lower quadrant bowel anastomosis. No pneumatosis intestinalis or extraluminal air.
2. Small amount of pelvic free fluid, which extends into a right inguinal hernia.
3. Wall thickening of the distal esophagus, which may be related to esophagitis or Gonzalez's esophagus.
Seen and examined. No new complaints on the day of discharge which is 01/16/2025. No acute overnight events
Tolerated breakfast. States this was the best breakfast he ever had
NAD
Scleral Anicteric
MMM
No JVD
CTABL
RRR, S1/S2
Soft, NT, ND, BS+
Warm, Dry
AAOx3
Calm
More than 30 minutes spent in discharge including
Final examination of the patient
Summarizing hospital stay
Instructions for continuing care to all relevant caregivers
Preparation of discharge records, prescriptions, and referral forms
Total time spent (in minutes): 33mins
Discharge Plan
-
Patient Disposition: Home (Routine Discharge)
Discharge Diagnosis/Procedures: Bowel obstruction
Condition: Good
Diet: As tolerated and Low Residue
Activity: As tolerated
Activity Restrictions/Additional Instructions:
Presented with abdominal pain nausea vomiting legs increasing with severity and associated with multiple episodes of nonbloody vomiting. CT demonstrated small bowel obstruction with transition point to right lower quadrant at site of prior
anastomosis. There is good IV fluids. NG tube placed. Evaluated by surgery eventually improvement in symptomatology. Advance diet as tolerated. Tolerated well and was able to be discharged home. Will need continued outpatient GI follow-up in
expedited Colonoscopy and outpatient surgery follow up along with PCP.
CTAP IMPRESSION:
1. Findings consistent with high-grade small bowel obstruction, transition point at a right lower quadrant bowel anastomosis. No pneumatosis intestinalis or extraluminal air.
2. Small amount of pelvic free fluid, which extends into a right inguinal hernia.
3. Wall thickening of the distal esophagus, which may be related to esophagitis or Gonzalez's esophagus.
Stand Alone Forms: Return to Work
Referrals:
aleida batista [Other] - in four to six weeks
Alton Lindquist MD [Family Provider, Family Practice]
Reynold Agrawal MD [Active, Surgical] - in three to four weeks
Sarah Beth Anne DO [Active, Gastroenterology] - 01/21/25 10:30 am
Prescriptions:
Continued
metformin 500 mg tablet
1,000 mg PO BID
lisinopril 20 mg tablet
20 mg PO DAILY
hydrochlorothiazide 12.5 mg capsule
12.5 mg PO DAILY
dapagliflozin propanediol [Farxiga] 10 mg tablet
10 mg PO DAILY
Discharge Orders:
Discharge Patient (As Directed); Ordered 01/16/25
Ordered By: Joon Barrett
Discharge Date and Time
Discharge Date/Time: 01/16/25 11:56
Print Language: JORDANIAN
== END 2025-01-16 11:56 | disposition home or self-care (01) | DRG 389 ==
LOC: 1 ACUTE 06:35
PROVIDERS: Registered Nurse; ADMITTING PHYSICIAN Hospitalist; ATTENDING PHYSICIAN Hospitalist; CONSULT PHYSICIAN Surgery; EMERGENCY PHYSICIAN Emergency Medicine; FAMILY PHYSICIAN Family Medicine
DX: K56.600 Partial intestinal obstruction, unspecified as to cause (principal); E87.21 Acute metabolic acidosis; N17.9 Acute kidney failure, unspecified; E11.22 Type 2 diabetes mellitus with diabetic chronic kidney disease; E86.0 Dehydration; K40.90 Unilateral inguinal hernia, without obstruction or gangrene, not specified as recurrent; N18.2 Chronic kidney disease, stage 2 (mild); Z79.899 Other long term (current) drug therapy
CPT/HCPCS: 43752; 74018; 74176; 80048; 80053; 82962; 83036; 83605; 83690; 83735; 84484; 85025; 85027; 93005; 94760; 96361; 96374; 96375; 99285

== ENCOUNTER → 2025-02-16 07:39 | Outpatient (REF) | payer OTHER, SELFPAY | LOC: RAD 07:39 | PROVIDERS: ATTENDING PHYSICIAN Internal Medicine; FAMILY PHYSICIAN Family Medicine | DX: K56.609 Unspecified intestinal obstruction, unspecified as to partial versus complete obstruction (principal); K50.012 Crohn's disease of small intestine with intestinal obstruction | CPT/HCPCS: 74177; Q9967 ==

== ENCOUNTER 2025-02-17 06:20 | Day surgery (SDC) | payer OTHER, SELFPAY ==
[2025-02-17 07:56] LABS: Glucose - Point of Care 139 mg/dl (70-99)
== END 2025-02-17 11:20 | disposition home or self-care (01) ==
LOC: GI 06:20
PROVIDERS: ATTENDING PHYSICIAN Internal Medicine
DX: K50.90 Crohn's disease, unspecified, without complications (principal); D12.3 Benign neoplasm of transverse colon; K56.690 Other partial intestinal obstruction; K62.1 Rectal polyp; R93.3 Abnormal findings on diagnostic imaging of other parts of digestive tract; K64.4 Residual hemorrhoidal skin tags; K64.8 Other hemorrhoids; Z98.0 Intestinal bypass and anastomosis status; K91.89 Other postprocedural complications and disorders of digestive system; D50.9 Iron deficiency anemia, unspecified; K29.80 Duodenitis without bleeding; K22.89 Other specified disease of esophagus; K44.9 Diaphragmatic hernia without obstruction or gangrene; K20.90 Esophagitis, unspecified without bleeding; K31.89 Other diseases of stomach and duodenum; K31.7 Polyp of stomach and duodenum
CPT/HCPCS: 45385; 45380; 43239; 82962; 88305; 88342